=== PATIENT | male | born 1990 | race Caucasian/White ===

== ENCOUNTER 2017-05-25 18:52 | Emergency (ER) | payer MEDICAID, OTHER ==
[2017-05-25] MEDS ORDERED: Ketorolac INJ* 30 MG/ML 1 ML VIAL IV PUSH ONE (19:27)
[2017-05-25] MEDS ORDERED: NS 0.9% 1000 ML* 1,000 ML IV ONE (19:27)
[2017-05-25 19:49] LABS: Hematocrit 46 % (42-52); Mean Corpuscular HGB Conc 35 g/dl (31-36); Mean Corpuscular Hemoglobin 31 pg (27-31); Mean Corpuscular Volume 90 fL (80-94); Mean Platelet Volume 8 um3 (7.4-10.4); Red Blood Count 5.17 10^6/ul (4.0-5.4); Red Cell Distribution Width 14 % (10.5-15); White Blood Count 9.6 10^3/ul (3.5-10.8)
[2017-05-25 20:03] LABS: BUN/Creatinine Ratio 12.2 (8-20); Calcium 9.4 mg/dL (8.6-10.3); EGFR African American 143.9 (>60); EGFR Non-African American 111.9 (>60); Potassium 3.8 mmol/L (3.5-5.0)
--- NOTE | 2017-05-25 20:09 | RAD ---
INDICATION: Fall. Possible neck injury. COMPARISON: None TECHNIQUE: Noncontrast axial source images was performed from the skull base to the thoracic inlet. Coronal and and sagittal reformatted images were generated. FINDINGS: Vertebrae: There is no fracture or acute focal bony lesion. Alignment: The craniocervical junction appears normal. The cervical vertebrae are normally aligned. Central Canal: There are no significant CT abnormalities of the central canal or foramina. MR imaging is a more sensitive method to evaluate the canal and foramina. Intervertebral disc spaces: The disc spaces are maintained. Brain: The visualized brain appears unremarkable. Soft tissues: The visualized soft tissue elements of the neck are unremarkable. The prevertebral soft tissues appear normal. The lung apices are clear. IMPRESSION: NEGATIVE EXAMINATION.
--- NOTE | 2017-05-25 20:09 | RAD ---
INDICATION: Intracranial injury. COMPARISON: None TECHNIQUE: Noncontrast axial source images were acquired from the skull base to the vertex. FINDINGS: Ventricles/sulci: The ventricles and cisterns are normal in size and configuration for age. Brain parenchyma: There is no focal parenchymal finding, evidence of intracranial mass, or intracranial mass effect. Intracranial hemorrhage:None. Extra-axial spaces: There are no abnormal extra axial fluid collections or evidence of extra-axial mass. Calvarium: There is no calvarial fracture or other calvarial abnormality. Scalp: There is no evidence of scalp or extracalvarial soft tissue abnormality. Paranasal sinuses/mastoid: The paranasal sinuses and mastoid air cells are clear. Other: None. IMPRESSION: NEGATIVE EXAMINATION
--- NOTE | 2017-05-25 20:30 | RAD ---
INDICATION: Pelvic injury COMPARISON: None TECHNIQUE: A single AP view of the pelvis is submitted. FINDINGS: There is no acute fracture. The SI joints and symphysis are intact. The hips articulate normally. The soft tissues are normal. IMPRESSION: NO ACUTE PLAIN RADIOGRAPHIC ABNORMALITIES.
--- NOTE | 2017-05-25 20:31 | RAD ---
INDICATION: Medial right knee pain COMPARISON: None TECHNIQUE: AP, lateral, tunnel, and sunrise views were obtained. FINDINGS: The bony structures, joint spaces, and soft tissues are normal for age. IMPRESSION: NEGATIVE EXAMINATION.
[2017-05-25] MEDS ORDERED: Cyclobenzaprine TAB* 10 MG PO ONE (21:10)
[2017-05-25] MEDS ORDERED: Cyclobenzaprine TAB* 10 MG ONE (21:13)
[2017-05-25 21:24] VITALS: BP 128/67
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
== END 2017-05-25 21:29 | disposition home or self-care (01) ==
LOC: ED 18:52
DX: S09.90XA Unspecified injury of head, initial encounter (principal); S13.9XXA Sprain of joints and ligaments of unspecified parts of neck, initial encounter; S83.91XA Sprain of unspecified site of right knee, initial encounter; S70.02XA Contusion of left hip, initial encounter; F17.200 Nicotine dependence, unspecified, uncomplicated; J45.909 Unspecified asthma, uncomplicated; V17.4XXA Pedal cycle driver injured in collision with fixed or stationary object in traffic accident, initial encounter; Y93.55 Activity, bike riding; Y92.9 Unspecified place or not applicable; F31.9 Bipolar disorder, unspecified
CPT/HCPCS: 36415; 70450; 72125; 72170; 80048; 85025; 96360; 96374; 99283; A9270-GY; J1885

== ENCOUNTER 2017-09-12 18:29 | Emergency (ER) | payer OTHER ==
--- NOTE | 2017-09-12 20:32 | RAD ---
HISTORY: Left hand and wrist injury and pain COMPARISONS: None VIEWS: 7, Frontal, lateral, and oblique views of the left hand and wrist FINDINGS: BONE DENSITY: There is advanced juxta articular osteopenia of the wrist and hand BONES: There is no displaced fracture. JOINTS: There is no arthropathy. ALIGNMENT: There is no dislocation. SOFT TISSUES: Unremarkable. OTHER FINDINGS: None. 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 NO ACUTE OSSEOUS INJURY. THE DEGREE OF OSTEOPENIA MAY MAKE A NONDISPLACED FRACTURE RADIOGRAPHICALLY OCCULT. IF SYMPTOMS PERSIST, RECOMMEND REPEAT IMAGING.
[2017-09-12] MEDS ORDERED: Naproxen TAB* 375 MG PO ONE (21:28)
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
[2017-09-12 21:48] VITALS: BP 112/74
== END 2017-09-12 21:47 | disposition home or self-care (01) ==
LOC: ED 18:29
DX: S63.92XA Sprain of unspecified part of left wrist and hand, initial encounter (principal); S60.222A Contusion of left hand, initial encounter; S00.11XA Contusion of right eyelid and periocular area, initial encounter; Y04.0XXA Assault by unarmed brawl or fight, initial encounter; Y93.9 Activity, unspecified; Y92.9 Unspecified place or not applicable; J45.909 Unspecified asthma, uncomplicated; G80.9 Cerebral palsy, unspecified; F31.9 Bipolar disorder, unspecified; F17.200 Nicotine dependence, unspecified, uncomplicated
CPT/HCPCS: 99282; A9270-GY

== ENCOUNTER 2017-11-21 20:09 | Emergency (ER) | payer OTHER ==
[2017-11-21 20:43] VITALS: BP 137/76
[2017-11-21] MEDS ORDERED: Albuterol HFA INHALER* 8 gm MDI INH ONE (22:20)
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
--- NOTE | 2017-11-22 07:31 | RAD ---
INDICATION: Trauma left elbow hyperextension. TECHNIQUE: 4 views of the left elbow were obtained. FINDINGS: The patient is status post operative reduction internal fixation of a fracture of the distal humerus. There are multiple surgical plates and screws present. The surgical hardware appears intact. The fracture appears healed. No joint effusion or acute fracture is seen. There is mild to moderate osteoarthritic change present. IMPRESSION: LIMITED STUDY, POSTSURGICAL CHANGES, NO ACUTE FRACTURE IS SEEN.
== END 2017-11-21 23:22 | disposition home or self-care (01) ==
LOC: ED 20:09
DX: S59.902A Unspecified injury of left elbow, initial encounter (principal); S40.021A Contusion of right upper arm, initial encounter; Y04.8XXA Assault by other bodily force, initial encounter; Y93.9 Activity, unspecified; Y92.9 Unspecified place or not applicable; J45.909 Unspecified asthma, uncomplicated; F31.9 Bipolar disorder, unspecified; F17.200 Nicotine dependence, unspecified, uncomplicated
CPT/HCPCS: 71046; 99282; A9270-GY

== ENCOUNTER 2018-01-15 15:51 | Inpatient (IN) | payer SELFPAY ==
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
[2018-01-15] MEDS ORDERED: diPHENhydraMINE PO* 50 MG ONE (16:33)
[2018-01-15] MEDS ORDERED: Haloperidol INJ IV/IM* 5 MG/ML AMP ONE ×2 (16:33→22:15)
[2018-01-15] MEDS ORDERED: LORazepam INJ* 2 MG/ML 1 ML VIAL ONE ×2 (16:34→22:15)
[2018-01-15 16:40] LABS: ABS Basophils 0 10^3/ul (0-0.2); ABS Eosinophils 0 10^3/ul (0-0.6); ABS Lymphocytes 1.3 10^3/ul (1.0-4.8); ABS Monocytes 0.4 10^3/ul (0-0.8); ABS Neutrophils 2.9 10^3/ul (1.5-7.7); ABS Nucleated RBC 0 10^3/ul; Hematocrit 42 % (42-52); Hemoglobin 14.2 g/dl (14.0-18.0); Lymphocyte % 27.9 % (25-47); Mean Corpuscular HGB Conc 34 g/dl (31-36); Mean Corpuscular Hemoglobin 31 pg (27-31); Mean Corpuscular Volume 92 fL (80-94); Mean Platelet Volume 7.4 um3 (7.4-10.4); Nucleated Red Blood Cells % 0.1; Platelet Count 192 10^3/ul (150-450); Red Blood Count 4.54 10^6/ul (4.00-5.40); Red Cell Distribution Width 14 % (10.5-15); White Blood Count 4.7 10^3/ul (3.5-10.8)
[2018-01-15 17:01] LABS: EGFR Non-African American 100.5 (>60)
[2018-01-15 18:55] LABS: Urine Appearance Clear; Urine Blood Negative (Negative); Urine Color Yellow; Urine Ketones Negative (Negative); Urine Protein Negative (Negative); Urine Red Blood Cell Absent (Absent); Urine Specific Gravity 1.011 (1.010-1.030); Urine Urobilinogen Negative (Negative); Urine White Blood Cell Trace(0-5/hpf) (Absent)
[2018-01-15] MEDS ORDERED: diPHENhydraMINE IV* 50 MG/ML 1 ml VIAL (BENADRYL) ONE (22:15)
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
[2018-01-16] MEDS ORDERED: Haloperidol INJ IV/IM* 5 MG/ML AMP ONE (05:09)
[2018-01-16] MEDS ORDERED: diPHENhydraMINE IV* 50 MG/ML 1 ml VIAL (BENADRYL) ONE (05:09)
[2018-01-16] MEDS ORDERED: LORazepam INJ* 2 MG/ML 1 ML VIAL ONE (05:09)
[2018-01-16] MEDS ORDERED: Haloperidol INJ IV/IM* 5 MG/ML AMP IM ONE (13:06)
[2018-01-16] MEDS ORDERED: LORazepam INJ* 2 MG/ML 1 ML VIAL IM ONE (13:06)
[2018-01-16] MEDS ORDERED: diPHENhydraMINE IV* 50 MG/ML 1 ml VIAL (BENADRYL) IM ONE (13:06)
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
[2018-01-16] MEDS ORDERED: Acetaminophen TAB* 325 MG PO PRN (15:07)
[2018-01-16] MEDS ORDERED: Nicotine GUM* 2 MG PO PRN (15:07)
[2018-01-16] MEDS ORDERED: Mouth Piece, Nicotine* 1 EACH CARTRIDGE INH SCH (15:07)
[2018-01-16] MEDS ORDERED: Al Hydrox/Mg Hydrox/Simet LIQ* 30 ML UDC PO PRN (15:07)
[2018-01-16] MEDS ORDERED: Haloperidol TAB* 5 MG PO PRN (15:10)
[2018-01-16] MEDS ORDERED: Bacitracin OINTMENT* 0.5% 0.5 oz TUBE TOPICAL ONE (15:14)
[2018-01-16] MEDS ORDERED: Bacitracin OINTMENT* 0.5% 0.5 oz TUBE ONE (15:15)
[2018-01-16] MEDS ORDERED: Albuterol HFA INHALER* 8 gm MDI INH PRN ×2 (15:31→15:44)
[2018-01-16] MEDS ORDERED: diPHENhydraMINE PO* 50 MG PO PRN (15:44)
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
[2018-01-17] MEDS: Nicotine Inhaler* 10 MG AMP INH PRN (10:31)
[2018-01-17] MEDS: Vitamin THERAPEUTIC TAB PO SCH (10:32)
[2018-01-17] MEDS ORDERED: Haloperidol TAB* 5 MG PO PRN (12:30)
[2018-01-17] MEDS: Ibuprofen TAB* 600 MG PO PRN ×2 (12:48→21:52)
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
[2018-01-17] MEDS: Divalproex DR TAB(*) 500 MG PO SCH ×2 (13:46→21:53)
--- NOTE | 2018-01-17 14:36 | RAD ---
HISTORY: rule out complication from recent injury, left forearm neuropathy, subacute trauma COMPARISONS: Left wrist dated September 12, 2017 VIEWS: 2, Frontal and lateral views of the left forearm FINDINGS: BONE DENSITY: There is juxta articular osteopenia. BONES: There is no displaced fracture. There is remote post traumatic versus postsurgical change to the mid and distal ulna. There is status post internal fixation of the distal humerus. JOINTS: There is no arthropathy. ALIGNMENT: There is no dislocation. SOFT TISSUES: Unremarkable. OTHER FINDINGS: None. IMPRESSION: 1. JUXTA-ARTICULAR OSTEOPENIA OF THE WRIST. 2. REMOTE POSTTRAUMATIC VERSUS POSTSURGICAL CHANGE OF THE ULNA. 3. STATUS POST INTERNAL FIXATION OF THE DISTAL HUMERUS. 4. NO ACUTE OSSEOUS INJURY. IF SYMPTOMS PERSIST, RECOMMEND REPEAT IMAGING
[2018-01-17] MEDS: diPHENhydraMINE PO* 50 MG PO SCH (17:23)
[2018-01-17] MEDS ORDERED: OLANzapine TAB*ODT* 5 MG PO SCH (21:00)
[2018-01-17] MEDS ORDERED: OLANzapine TAB* 5 MG PO SCH (21:00)
[2018-01-17] MEDS: Bacitracin OINTMENT* 0.5% 0.5 oz TUBE TOPICAL SCH (21:55)
[2018-01-18] MEDS: diPHENhydraMINE PO* 50 MG PO SCH ×3 (02:38→11:24)
[2018-01-18 09:00] VITALS: BP 126/75
[2018-01-18] MEDS: Divalproex DR TAB(*) 500 MG PO SCH (09:17)
[2018-01-18] MEDS: Vitamin THERAPEUTIC TAB PO SCH (09:18)
[2018-01-18] MEDS: Bacitracin OINTMENT* 0.5% 0.5 oz TUBE TOPICAL SCH (09:19)
[2018-01-18] MEDS: Nicotine Inhaler* 10 MG AMP INH PRN (10:42)
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
== END 2018-01-18 13:05 | disposition home or self-care (01) | DRG 885 ==
LOC: ED 15:51 → BSU 01-16 16:05
PROVIDERS: ADMIT Psychiatry & Neurology Psychiatry; ATTEND Psychiatry & Neurology Psychiatry
PROC: 0CQ0XZZ Repair Upper Lip, External Approach (ICD-10-PCS; principal; 2018-01-16)
DX: F31.2 Bipolar disorder, current episode manic severe with psychotic features (principal); R45.851 Suicidal ideations; R45.850 Homicidal ideations; J45.909 Unspecified asthma, uncomplicated; G80.9 Cerebral palsy, unspecified; F17.210 Nicotine dependence, cigarettes, uncomplicated; S50.311A Abrasion of right elbow, initial encounter; S80.212A Abrasion, left knee, initial encounter; S80.211A Abrasion, right knee, initial encounter; S00.511A Abrasion of lip, initial encounter; X58.XXXA Exposure to other specified factors, initial encounter; M54.9 Dorsalgia, unspecified; M79.2 Neuralgia and neuritis, unspecified; F12.10 Cannabis abuse, uncomplicated; F19.10 Other psychoactive substance abuse, uncomplicated; Z91.19 Patient's noncompliance with other medical treatment and regimen; Y92.9 Unspecified place or not applicable
CPT/HCPCS: 36415; 80053; 80061; 80307; 80320; 80329; 81003; 81015; 83036; 84443; 85025; 87086; 99222; 99238; 99285; A9270-GY; G0480; J1200; J1630; J2060

== ENCOUNTER 2018-01-27 15:12 | Emergency (ER) | payer MEDICAID ==
[2018-01-27 15:49] VITALS: BP 119/69
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
== END 2018-01-27 15:45 | disposition home or self-care (01) ==
LOC: ED 15:12
DX: S01.511D Laceration without foreign body of lip, subsequent encounter (principal); W45.8XXD Other foreign body or object entering through skin, subsequent encounter; F17.210 Nicotine dependence, cigarettes, uncomplicated
CPT/HCPCS: 99281

== ENCOUNTER 2018-02-09 11:58 | Emergency (ER) | payer MEDICAID ==
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
[2018-02-09 12:53] LABS: ABS Basophils 0 10^3/ul (0-0.2); ABS Eosinophils 0.1 10^3/ul (0-0.6); ABS Lymphocytes 1.6 10^3/ul (1.0-4.8); ABS Monocytes 0.5 10^3/ul (0-0.8); ABS Neutrophils 4.4 10^3/ul (1.5-7.7); ABS Nucleated RBC 0 10^3/ul; Hematocrit 44 % (42-52); Lymphocyte % 24.2 % (25-47); Mean Corpuscular HGB Conc 34 g/dl (31-36); Mean Corpuscular Hemoglobin 31 pg (27-31); Mean Corpuscular Volume 91 fL (80-94); Mean Platelet Volume 7.7 um3 (7.4-10.4); Nucleated Red Blood Cells % 0; Platelet Count 223 10^3/ul (150-450); Red Blood Count 4.82 10^6/ul (4.00-5.40); Red Cell Distribution Width 14 % (10.5-15); White Blood Count 6.6 10^3/ul (3.5-10.8)
[2018-02-09 13:18] LABS: EGFR Non-African American 104.5 (>60)
[2018-02-09 14:04] LABS: Urine Appearance Clear; Urine Blood Negative (Negative); Urine Color Straw; Urine Ketones Negative (Negative); Urine Protein Negative (Negative); Urine Specific Gravity 1.008 (1.010-1.030); Urine Urobilinogen Negative (Negative)
[2018-02-09 14:46] VITALS: BP 150/85
== END 2018-02-09 14:45 | disposition home or self-care (01) ==
LOC: ED 11:58
DX: F29 Unspecified psychosis not due to a substance or known physiological condition (principal); N53.9 Unspecified male sexual dysfunction; F17.210 Nicotine dependence, cigarettes, uncomplicated
CPT/HCPCS: 36415; 80053; 80307; 80320; 80329; 81003; 84443; 85025; 99284; G0480

== ENCOUNTER 2018-05-21 08:33 | Day surgery (SDC) | payer MEDICAID, OTHER ==
[2018-05-21] MEDS ORDERED: ceFAZolin 2 GM PREMIX in ORs 2 GM/50 ML BAG IVPB ONE (10:21)
[2018-05-21] MEDS ORDERED: Morphine VIAL* 10 MG/ML 1 ML VIAL ONE (10:21)
[2018-05-21] MEDS ORDERED: Buffered Lidocaine 0.9% SYRIN* 5 ML/SYR SYRINGE INTRADERM ONE (11:40)
[2018-05-21] MEDS ORDERED: Famotidine IV* 10 MG/ML 2 ML (20 mg) ONE (12:45)
[2018-05-21] MEDS ORDERED: Midazolam* 1 MG/ML 2 ML VIAL (2 MG) ONE ×2 (12:45→14:06)
[2018-05-21] MEDS ORDERED: fentaNYL* 50 MCG/ML 2 ML VIAL (100 MCG VIAL) ONE (12:45)
[2018-05-21] MEDS ORDERED: Bupivacaine 0.25% EPI 200,000* 30 ML SDV ONE (13:35)
[2018-05-21] MEDS ORDERED: Cisatracurium* 2 MG/ML MDV 5 ML ONE (13:51)
[2018-05-21] MEDS ORDERED: Esmolol* 10 MG/ML 10 ML (100 mg) ONE (14:00)
[2018-05-21] MEDS ORDERED: Propofol* 10 MG/ML 20 ML BTL ONE (14:00)
[2018-05-21] MEDS ORDERED: diPHENhydraMINE IV* 50 MG/ML 1 ml VIAL (BENADRYL) ONE (14:08)
[2018-05-21] MEDS ORDERED: HYDROmorphone INJ1* 1 MG/ML SYRINGE ONE ×2 (14:08→15:00)
[2018-05-21] MEDS ORDERED: Labetalol IV* 5 MG/ML 20 ML VIAL ONE (14:16)
[2018-05-21] MEDS ORDERED: DiMENhydriNATE IV* 50 MG/ML VIAL IV PUSH PRN (14:43)
[2018-05-21] MEDS ORDERED: Levalbuterol 0.63MG/3ML NEB* UNIT OF USE INH PRN (14:43)
[2018-05-21] MEDS ORDERED: Ondansetron INJ* 2 MG/ML VIAL IV PRN (14:43)
[2018-05-21] MEDS ORDERED: PROCHLORPERAZINE INJ 5 MG/ML 2 ML VIAL IV PRN (14:43)
[2018-05-21] MEDS ORDERED: HYDROcodone/ACETAMIN 5-325 MG* 1 TAB PO PRN ×2 (14:43)
[2018-05-21] MEDS ORDERED: Naloxone* 0.4 MG/ML 1 ML VIAL IV PRN (14:43)
[2018-05-21] MEDS ORDERED: Acetaminophen IV 1GM/100ML * 1,000 MG/100 ML VIAL IVPB ONE (14:43)
[2018-05-21] MEDS ORDERED: HYDROmorphone INJ1* 1 MG/ML SYRINGE IV PRN (14:43)
[2018-05-21] MEDS ORDERED: diPHENhydraMINE IV* 50 MG/ML 1 ml VIAL (BENADRYL) IV PRN (14:43)
[2018-05-21] MEDS ORDERED: Ketorolac INJ* 30 MG/ML 1 ML VIAL ONE (15:28)
[2018-05-21] MEDS ORDERED: HYDROcodone/ACETAMIN 5-325 MG* 1 TAB ONE (17:44)
[2018-05-21 17:57] VITALS: BP 131/79
--- NOTE | 2018-05-22 20:51 | OP ---
DATE OF OPERATION: 05/21/18 - [facility] DATE OF : 88 SURGEON: Dereje Alfred MD MECHANICAL TEST TECHNICIAN: Aneesh Grace MD ANESTHESIOLOGIST: Dr. Segal. ANESTHESIA: General with local. PRE-OP DIAGNOSIS: Right inguinal hernia. POST-OP DIAGNOSIS: Right direct inguinal hernia. OPERATIVE PROCEDURE: Totally extraperitoneal laparoscopic repair with mesh of a right direct inguinal hernia. ESTIMATED BLOOD LOSS: Minimal. SPECIMENS: None. WOUND CLASSIFICATION: 1. COMPLICATIONS: None. DRAINS: None. DESCRIPTION OF PROCEDURE: Written informed consent was obtained. The right groin was marked with indelible ink and preoperative antibiotics were administered. The patient was taken to the operating room, placed in the supine position. Sequential compression devices and a warming blanket were applied. General anesthesia was administered. A Magdaleno catheter was inserted. The entire abdomen and both groins were prepped and draped in the usual sterile fashion. Time-out verification was completed. Initially, a small transverse incision was made just below the umbilicus and just off the left of the midline and carried down to the anterior rectus fascia. This was divided transversely and the rectus muscle was identified at the midline and retracted laterally. The preperitoneal space was identified and using a Spacemaker balloon, this was advanced down to the pubic tubercle. Under direct vision with the camera, we inflated the balloon to develop the extraperitoneal space with about 15 squeezes of the hand pump. Once this was complete, the balloon was deflated and removed. A 12-mm blunt port was inserted and the extraperitoneal space was insufflated to 12 mmHg. The patient was placed in Trendelenburg position. Under direct vision, two 5-mm ports were placed in the lower midline below our initial incision. The pubic tubercle at the midline was identified. Giles's ligament was freed up somewhat to the left of the midline and then attention was turned to the right side. We identified the Giles's ligament on the right and moving laterally identified the epigastric vessels as I gained entry into the anterior abdominal wall and these were protected from injury throughout. More laterally, the anterior abdominal wall was dissected through the adventitial tissue just about to the iliac crest on the right. At this point, it appeared apparent that there was a direct space hernia that had been reduced with the insufflation of balloon. We identified the peritoneum laterally and worked lateral to medially reducing this back into the retroperitoneum and more posteriorly there was no evidence of an indirect inguinal hernia. I identified the vas deferens and spermatic cord contents and these were protected from injury throughout. Once the peritoneum had dissected back posteriorly, the ProGrip 10 cm x 15 cm mesh was cut down slightly in a lateral direction and the edges were rounded. It was folded and placed into the extraperitoneal space. The medial aspect covering the pubic tubercle with generous overlap extending onto the left side somewhat. This fitted nicely covering the direct and indirect spaces anteriorly and posteriorly with care to make sure that the peritoneum had been reflected back posteriorly. The mesh sat nicely without evidence of wrinkling or significant folds. Hemostasis was assured. The insufflation was reduced in a direct vision holding the mesh in place to allow the peritoneum to adhere the mesh up to the anterior abdominal wall. The anterior rectus fascia was then closed with several interrupted #1 Vicryl suture. The skin at all three incisions was approximated with subcuticular 4-0 Vicryl suture. Steri-Strips were applied. The patient tolerated the procedure well, was taken to the recovery room in stable condition. [id number]/[facility] #: [id number] [facility]ITALMary Grace
== END 2018-05-21 18:19 | disposition home or self-care (01) ==
LOC: OR 08:33
PROVIDERS: ATTEND Surgery
DX: K40.90 Unilateral inguinal hernia, without obstruction or gangrene, not specified as recurrent (principal); R00.1 Bradycardia, unspecified; J45.909 Unspecified asthma, uncomplicated; F17.210 Nicotine dependence, cigarettes, uncomplicated; F31.9 Bipolar disorder, unspecified
CPT/HCPCS: 93005; J0690; J1170; J1200; J1885; J2250; J2270; J2704; J3010

== ENCOUNTER 2018-07-02 17:29 | Inpatient (IN) | payer OTHER ==
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
[2018-07-02 18:09] LABS: ABS Basophils 0.1 10^3/ul (0-0.2); ABS Eosinophils 0.1 10^3/ul (0-0.6); ABS Lymphocytes 2.3 10^3/ul (1.0-4.8); ABS Monocytes 0.6 10^3/ul (0-0.8); ABS Neutrophils 4.1 10^3/ul (1.5-7.7); ABS Nucleated RBC 0 10^3/ul; Eosinophil % 1.7 %; Hematocrit 45 % (42-52); Hemoglobin 15.5 g/dl (14.0-18.0); Lymphocyte % 31.8 %; Mean Corpuscular HGB Conc 35 g/dl (31-36); Mean Corpuscular Hemoglobin 31 pg (27-31); Mean Corpuscular Volume 90 fL (80-94); Mean Platelet Volume 7.3 fL (7.4-10.4); Nucleated Red Blood Cells % 0.1; Platelet Count 253 10^3/ul (150-450); Red Blood Count 4.96 10^6/ul (4.00-5.40); Red Cell Distribution Width 14 % (10.5-15); White Blood Count 7.2 10^3/ul (3.5-10.8)
[2018-07-02 18:26] LABS: ALT 21 U/L (7-52); AST 20 U/L (13-39); Albumin 4.6 g/dL (3.2-5.2); Albumin/Globulin Ratio 1.9 (1-3); Alkaline Phosphatase 60 U/L (34-104); Anion Gap 6 mmol/L (2-11); BUN/Creatinine Ratio 19.4 (8-20); Blood Urea Nitrogen 19 mg/dL (6-24); CO2 Carbon Dioxide 29 mmol/L (22-32); Calcium 9.5 mg/dL (8.6-10.3); Chloride 103 mmol/L (101-111); EGFR Non-African American 90.4 (>60); Globulin 2.4 g/dL (2-4); Glucose 111 mg/dL (70-100); Potassium 4.7 mmol/L (3.5-5.0); Sodium 138 mmol/L (135-145)
[2018-07-02 18:41] LABS: Acetaminophen < 15 mcg/mL; Alcohol < 10 mg/dL (<10); Salicylate < 2.50 mg/dL (<30)
[2018-07-02 18:56] LABS: TSH (Thyroid Stimulating Horm) 2.19 mcIU/mL (0.34-5.60)
[2018-07-02] MEDS ORDERED: LORazepam INJ* 2 MG/ML 1 ML VIAL IM ONE (19:20)
[2018-07-02] MEDS ORDERED: Ziprasidone IM INJ* 20 MG/ML VIAL IM ONE (19:20)
[2018-07-02] MEDS ORDERED: Ziprasidone IM INJ* 20 MG/ML VIAL ONE (19:21)
[2018-07-02] MEDS ORDERED: LORazepam INJ* 2 MG/ML 1 ML VIAL ONE (19:22)
--- NOTE | 2018-07-02 23:06 | ED ---
Progress - Progress Note Progress Note: This patient was signed out from Dr Carrillo awaiting MHE. Re-Evaluation - Re-Evaluation First Eval Re-Evaluation Time: 06:47 Change: Worse Comment: The patient is becoming combative, this began after he was told he is being admitted, patient will be sedated. Course/Dx - Course Course Of Treatment: After a MHE by Dr. Fong the patient will be admitted for bipolar disorder. As there are no beds in the mental health unit the patient will need to be transferred. The patient will be signed out awaiting transfer. - Diagnoses Provider Diagnoses: Psychosis Discharge - Sign-Out/Discharge Documenting (check all that apply): Patient Departure - admitted , Sign-Out Patient, Receiving Sign-Out Signing out patient TO: Augustus Swift Receiving patient FROM: Seferino Abad - Discharge Plan Condition: Improved Disposition: PSYCHIATRIC FACILITY-[facility] - Billing Disposition and Condition Condition: IMPROVED Disposition: Psychiatric Facility [facility] - Attestation Statements Document Initiated by Scribe: Yes Documenting Scribe: Jay Osborne Provider For Whom Golden is Documenting (Include Credential): Christy Caraballo MD Scribe Attestation: Jay Wynn , scribed for Christy Caraballo MD on 07/03/18 at 1936. Scribe Documentation Reviewed: Yes Provider Attestation: The documentation as recorded by the Jay shane accurately reflects the service I personally performed and the decisions made by Gilda razo MD Status of Scribe Document: Viewed
[2018-07-03] MEDS ORDERED: OLANzapine TAB* 5 MG PO ONE (05:45)
[2018-07-03] MEDS ORDERED: Ziprasidone IM INJ* 20 MG/ML VIAL ONE (06:46)
[2018-07-03] MEDS ORDERED: Sterile Water for Inj* 10 ML ONE (06:47)
[2018-07-03] MEDS ORDERED: LORazepam INJ* 2 MG/ML 1 ML VIAL ONE (06:47)
[2018-07-03] MEDS ORDERED: Ziprasidone IM INJ* 20 MG/ML VIAL IM ONE (06:48)
[2018-07-03] MEDS ORDERED: LORazepam INJ* 2 MG/ML 1 ML VIAL IM ONE (06:49)
--- NOTE | 2018-07-03 07:28 | ED ---
Progress - Progress Note Progress Note: This patient was signed out from Dr. Caraballo to Dr. Swift upon shift change at 07: 00 07/03/18 pending mental health transfer since there are no beds available at [facility] [place]. Per leadership development consultant, Dr. Mina has decided the patient will be admitted to [facility] [place]. Dx: psychosis. - EKG/XRAY/CT EKG: rhythm - bradycardia, unchanged from - 05/21/18 Comments: EKG at 08:00 shows Sinus bradycardia at 56 bpm. Unchanged from Course/Dx - Course Course Of Treatment: This patient was signed out from Dr. Caraballo to Dr. Swift upon shift change at 07:00 07/03/18 pending mental health transfer since there are no beds available at [facility] [place]. Per leadership development consultant, Dr. Mina has decided the patient will be admitted to [facility] [place]. Dx: psychosis. - Diagnoses Provider Diagnoses: Psychosis - Provider Notifications Discussed Care Of Patient With: Sander Mina Time Discussed With Above Provider: 10:30 Instructed by Provider To: Other - Per leadership development consultant, Dr. Mina has decided that the patient will be admitted to [facility] [place], dx: psychosis. Discharge - Sign-Out/Discharge Documenting (check all that apply): Patient Departure - Discharge Plan Condition: Improved Disposition: PSYCHIATRIC FACILITY-[facility] [place] - Billing Disposition and Condition Condition: IMPROVED Disposition: Psychiatric Facility [facility] [place] - Attestation Statements Document Initiated by Golden: Yes Documenting Scribe: Fritz Mathews Provider For Whom Golden is Documenting (Include Credential): Augustus Swift MD Scribe Attestation: IFritz, scribed for Augustus Swift MD on 07/03/18 at 1821. Scribe Documentation Reviewed: Yes Provider Attestation: The documentation as recorded by the Fritz shane accurately reflects the service I personally performed and the decisions made by me, Augustus Swift MD Status of Scribe Document: Viewed
[2018-07-03] MEDS ORDERED: Al Hydrox/Mg Hydrox/Simet LIQ* 30 ML UDC PO PRN (11:21)
[2018-07-03] MEDS ORDERED: Acetaminophen TAB* 325 MG PO PRN (11:21)
[2018-07-03] MEDS ORDERED: Haloperidol TAB* 5 MG PO PRN (11:22)
--- NOTE | 2018-07-03 11:28 | PN ---
Progress Note - Progress Note Date of Service: 07/03/18 Note: S: Patient appears to be a mixed-race young male who arrived on a voluntary basis seeking mental health treatment, reporting that he was elected "[facility]." He has been extremely irritable and demanding, having received prns of ziprasidone and olanzapine and refusing urine for UDS. On exam he is rude and complaining about the food. Patient says he is unwelcome on [facility] property and that only Ritalin works for him. O: young, smallish mixed-race male in blue scrubs; agitated and labile; cannot contract for safety A/P: Agitation: uncertain diagnostically as patient may have been abusing drugs. Will admit to [facility] on 9.39 legal status and resume olanzapine.
[2018-07-03 15:40] VITALS: BP 132/65
[2018-07-03] MEDS ORDERED: diPHENhydraMINE IV* 50 MG/ML 1 ml VIAL (BENADRYL) IV ONE (16:19)
[2018-07-03] MEDS ORDERED: diPHENhydraMINE IV* 50 MG in NS 0.9% 50 ML* 50 ML IVPB ONE (16:19)
[2018-07-03] MEDS ORDERED: Haloperidol INJ IV/IM* 5 MG/ML AMP IM PRN (16:19)
[2018-07-03] MEDS ORDERED: LORazepam INJ* 2 MG/ML 1 ML VIAL IV PUSH ONE (16:19)
[2018-07-03] MEDS ORDERED: OLANzapine TAB* 10 MG PO SCH (21:00)
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
== END 2018-07-03 18:00 | disposition home or self-care (01) | DRG 753 ==
LOC: ED 17:29 → BSU 07-03 11:23
PROVIDERS: ADMIT Psychiatry & Neurology Psychiatry; ATTEND Psychiatry & Neurology Psychiatry
DX: F39 Unspecified mood [affective] disorder (principal); F12.10 Cannabis abuse, uncomplicated; F11.10 Opioid abuse, uncomplicated; Z81.3 Family history of other psychoactive substance abuse and dependence
CPT/HCPCS: 36415; 80053; 80320; 80329; 84443; 85025; 93005; 99238; 99284; A9270-GY; G0480; J1630; J2060; J3486

== ENCOUNTER 2018-07-06 10:26 | Emergency (ER) | payer MEDICAID, OTHER ==
[~2018-07-06 10:26] MED LIST: Nicotine PATCH 21 MG/24 HR* PATCH ONE
[2018-07-06] MEDS ORDERED: Ziprasidone IM INJ* 20 MG/ML VIAL IM ONE (10:52)
[2018-07-06] MEDS ORDERED: LORazepam INJ* 2 MG/ML 1 ML VIAL IV ONE (10:52)
[2018-07-06] MEDS ORDERED: Ziprasidone IM INJ* 20 MG/ML VIAL ONE ×3 (10:53)
[2018-07-06] MEDS ORDERED: LORazepam INJ* 2 MG/ML 1 ML VIAL ONE ×2 (10:54)
[2018-07-06] MEDS ORDERED: Sterile Water for Inj* 10 ML ONE (10:54)
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
[2018-07-06 12:29] LABS: ABS Basophils 0 10^3/ul (0-0.2); ABS Eosinophils 0.1 10^3/ul (0-0.6); ABS Lymphocytes 1.2 10^3/ul (1.0-4.8); ABS Monocytes 0.6 10^3/ul (0-0.8); ABS Neutrophils 3.6 10^3/ul (1.5-7.7); ABS Nucleated RBC 0 10^3/ul; Eosinophil % 1.1 %; Hematocrit 42 % (42-52); Hemoglobin 14.3 g/dl (14.0-18.0); Lymphocyte % 22.3 %; Mean Corpuscular HGB Conc 34 g/dl (31-36); Mean Corpuscular Hemoglobin 31 pg (27-31); Mean Corpuscular Volume 90 fL (80-94); Mean Platelet Volume 7.4 fL (7.4-10.4); Nucleated Red Blood Cells % 0; Platelet Count 231 10^3/ul (150-450); Red Blood Count 4.59 10^6/ul (4.00-5.40); Red Cell Distribution Width 14 % (10.5-15); White Blood Count 5.4 10^3/ul (3.5-10.8)
[2018-07-06 12:46] LABS: ALT 21 U/L (7-52); AST 32 U/L (13-39); Albumin/Globulin Ratio 1.5 (1-3); Alkaline Phosphatase 60 U/L (34-104); Anion Gap 7 mmol/L (2-11); BUN/Creatinine Ratio 13.5 (8-20); Blood Urea Nitrogen 13 mg/dL (6-24); CO2 Carbon Dioxide 28 mmol/L (22-32); Calcium 9.3 mg/dL (8.6-10.3); Chloride 104 mmol/L (101-111); EGFR African American 112.1 (>60); EGFR Non-African American 92.6 (>60); Globulin 2.7 g/dL (2-4); Glucose 110 mg/dL (70-100); Potassium 3.8 mmol/L (3.5-5.0); Sodium 139 mmol/L (135-145); Total Protein 6.7 g/dL (6.4-8.9)
[2018-07-06 13:45] LABS: Alcohol < 10 mg/dL (<10); Salicylate < 2.50 mg/dL (<30)
[2018-07-06 13:58] LABS: TSH (Thyroid Stimulating Horm) 1.01 mcIU/mL (0.34-5.60)
[2018-07-06 14:00] LABS: Acetaminophen < 15 mcg/mL
[2018-07-06 15:12] LABS: Urine Appearance Cloudy; Urine Bacteria Absent (Absent); Urine Bilirubin Negative (Negative); Urine Blood Negative (Negative); Urine Color Yellow; Urine Glucose Negative (Negative); Urine Ketones Trace (Negative); Urine Nitrite Negative (Negative); Urine Protein 1+(30 mg/dL) (Negative); Urine Red Blood Cell Trace(0-2/hpf) (Absent); Urine Specific Gravity 1.026 (1.010-1.030); Urine Squamous Epithelial Cell Present (Absent); Urine Urobilinogen Negative (Negative); Urine White Blood Cell Trace(0-5/hpf) (Absent)
[2018-07-06 15:30] LABS: Barbiturates Urine Screen None Detected (None Detect); Benzodiazepine Urine Screen None Detected (None Detect); Urine Cannabinoids Screen Presumptive Positive (None Detect)
[2018-07-06] MEDS ORDERED: Nicotine PATCH 7 MG/24 HR* PATCH TRANSDERM ONE ×2 (15:52)
[2018-07-06] MEDS ORDERED: Nicotine Inhaler* 10 MG AMP INH ONE ×2 (15:52)
[2018-07-06] MEDS ORDERED: Mouth Piece, Nicotine* 1 EACH CARTRIDGE ONE (16:19)
[2018-07-06] MEDS ORDERED: Haloperidol Decanoate* 50 MG/ML AMP IM ONE ×2 (19:00)
[2018-07-06] MEDS ORDERED: Nicotine PATCH 21 MG/24 HR* PATCH ONE ×2 (20:16)
[2018-07-06] MEDS: Nicotine PATCH 21 MG/24 HR* PATCH TRANSDERM ONE (20:18)
--- NOTE | 2018-07-06 23:02 | ED ---
Progress - Progress Note Progress Note: PATIENT WAS SIGNED OUT TO DR. BERONICA CARABALLO VIA DR. ALFONSO RODRIGUES, PENDING MHE AND DISPOSITION, ON SHIFT CHANGE ON 07/06/2018 AT 2200. Patient was signed out to Dr. Seferino Abad via Dr. Beronica Caraballo, pending MHE and disposition, on shift change on 07/07/2018 at 0700. - Consult/PCP Time Called: 16:45 Course/Dx - Course Course Of Treatment: Mr. Mckenna was brought to the emergency department by the police in an agitated state. His presentation was similar to that described in the report from a couple days ago. He again needed to be given medications in order to control his behavior and keep him calm. He was medically cleared and was known to Dr. Mina who had evaluated him a couple days ago. He underwent a mental health eval here in the department and Kingsley Caldwell offered him a jail injectable antipsychotic and overnight observation with the plan for discharge in the morning. The patient was agreeable to that and accepted the shot. He is now resting with the plan that Dr. Mina will evaluate him in the morning. - Diagnoses Provider Diagnoses: Acute psychosis Discharge - Sign-Out/Discharge Documenting (check all that apply): Sign-Out Patient - MARIANO Signing out patient TO: Seferino Abad Receiving patient FROM: Beronica Caraballo - Discharge Plan Condition: Stable Referrals: No Primary Care Phys,NOPCP [Primary Care Provider] - - Attestation Statements Document Initiated by Scribe: Yes Documenting Scribe: Óscar Leahy Provider For Whom Golden is Documenting (Include Credential): Beronica Caraballo MD Scribe Attestation: Óscar Wynn, scribed for Beronica Caraballo MD on 07/07/18 at 0642. Status of Scribe Document: Ready
[2018-07-07] MEDS ORDERED: Nicotine PATCH 21 MG/24 HR* PATCH ONE (02:05)
[2018-07-07] MEDS: Nicotine PATCH 21 MG/24 HR* PATCH TRANSDERM ONE (02:12)
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
--- NOTE | 2018-07-07 12:47 | ED ---
Progress - Progress Note Progress Note: Patient is received as a sign out from Dr. Caraballo to Dr. Abad at 0700 07/07/18 shift change pending disposition of this patient. [id number] - Dr. Mina discussed patient's case with Dr. Abad. He notes that patient was given Haldol Dec last night, patient stated that it was the best medication he has ever had. Patient will be discharged to home and follow up with [facility]. Dr. Abad is agreeable with this. - Consult/PCP Time Called: 16:45 Course/Dx - Course Course Of Treatment: Patient is received as a sign out from Dr. Caraballo to Dr. Abad at 0700 07/07/18 shift change pending disposition of this patient. [id number] - Dr. Mina discussed patient's case with Dr. Abad. He notes that patient was given Haldol Dec last night, patient stated that it was the best medication he has ever had. Patient will be discharged to home and follow up with [facility]. Dr. Abad is agreeable with this. - Diagnoses Provider Diagnoses: Psychotic disorder - Provider Notifications Discussed Care Of Patient With: Sander Mina Time Discussed With Above Provider: 11:58 Instructed by Provider To: Other - 1152 - Dr. Mina discussed patient's case with Dr. Abad. He notes that patient was given Haldol Dec last night, patient stated that it was the best medication he has ever had. Patient will be discharged to home and follow up with [facility]. Dr. Abad is agreeable with this. Discharge - Sign-Out/Discharge Documenting (check all that apply): Patient Departure - discharge - Discharge Plan Condition: Stable Disposition: HOME Referrals: No Primary Care Phys,NOPCP [Primary Care Provider] - - Attestation Statements Document Initiated by Scribe: Yes Documenting Scribe: MILY FRENCH Provider For Whom Scribe is Documenting (Include Credential): SHADY ABAD MD Scribe Attestation: MILY Wynn , scribed for SHADY ABAD MD on 07/07/18 at 1203. Status of Scribe Document: Ready
--- NOTE | 2018-07-07 12:49 | PN ---
Progress Note - Progress Note Date of Service: 07/07/18 Note: S: Patient with history of substance abuse, questionable TBI and antisocial personality traits brought in by police on 9.45 due to erratic, disorganized behavior per [facility]. Patient accepted a dose of haldol decanoate 75mg IM times one last night and is much more reality-focused, now calm and cooperative. 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 Continue haloperidol decanoate 75mg IM monthly
[2018-07-07 13:14] VITALS: BP 158/86
== END 2018-07-07 13:12 | disposition home or self-care (01) ==
LOC: ED 10:26
DX: F29 Unspecified psychosis not due to a substance or known physiological condition (principal); D50.9 Iron deficiency anemia, unspecified; J45.909 Unspecified asthma, uncomplicated; F32.9 Major depressive disorder, single episode, unspecified; F17.210 Nicotine dependence, cigarettes, uncomplicated
CPT/HCPCS: 36415; 80053; 80307; 80320; 80329; 81003; 81015; 84443; 85025; 87086; 96372; 96374; 99285; A9270-GY; G0480; J1631; J2060; J3486

== ENCOUNTER 2018-07-09 08:27 | Emergency (ER) | payer OTHER ==
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
[2018-07-09 09:19] LABS: ABS Basophils 0.1 10^3/ul (0-0.2); ABS Eosinophils 0.2 10^3/ul (0-0.6); ABS Lymphocytes 1.2 10^3/ul (1.0-4.8); ABS Monocytes 0.6 10^3/ul (0-0.8); ABS Nucleated RBC 0 10^3/ul; Eosinophil % 2.9 %; Hematocrit 45 % (42-52); Hemoglobin 15.2 g/dl (14.0-18.0); Lymphocyte % 20.2 %; Mean Corpuscular HGB Conc 34 g/dl (31-36); Mean Corpuscular Hemoglobin 31 pg (27-31); Mean Corpuscular Volume 92 fL (80-94); Mean Platelet Volume 7.8 fL (7.4-10.4); Nucleated Red Blood Cells % 0.1; Platelet Count 220 10^3/ul (150-450); Red Blood Count 4.95 10^6/ul (4.00-5.40); Red Cell Distribution Width 14 % (10.5-15); White Blood Count 6.1 10^3/ul (3.5-10.8)
[2018-07-09 09:38] LABS: ALT 17 U/L (7-52); AST 20 U/L (13-39); Albumin 4.3 g/dL (3.2-5.2); Alkaline Phosphatase 59 U/L (34-104); Anion Gap 6 mmol/L (2-11); BUN/Creatinine Ratio 11.6 (8-20); Blood Urea Nitrogen 10 mg/dL (6-24); CO2 Carbon Dioxide 26 mmol/L (22-32); Calcium 9.3 mg/dL (8.6-10.3); Chloride 108 mmol/L (101-111); Creatine Kinase 251 U/L (10-223); EGFR Non-African American 105.1 (>60); Globulin 2.1 g/dL (2-4); Glucose 110 mg/dL (70-100); Potassium 4.1 mmol/L (3.5-5.0); Sodium 140 mmol/L (135-145); Total Protein 6.4 g/dL (6.4-8.9)
[2018-07-09] MEDS ORDERED: NS 0.9% 1000 ML* 1,000 ML IV ONE (09:41)
[2018-07-09 09:56] LABS: Acetaminophen < 15 mcg/mL; Alcohol < 10 mg/dL (<10); Salicylate < 2.50 mg/dL (<30)
[2018-07-09] MEDS ORDERED: Benztropine TAB* 2 MG PO ONE (10:04)
[2018-07-09 10:09] LABS: TSH (Thyroid Stimulating Horm) 0.77 mcIU/mL (0.34-5.60)
[2018-07-09 11:01] LABS: Urine Appearance Clear; Urine Bacteria Absent (Absent); Urine Bilirubin Negative (Negative); Urine Blood Negative (Negative); Urine Color Yellow; Urine Glucose Negative (Negative); Urine Ketones Negative (Negative); Urine Nitrite Negative (Negative); Urine Protein Negative (Negative); Urine Red Blood Cell Absent (Absent); Urine Specific Gravity 1.011 (1.010-1.030); Urine Urobilinogen Negative (Negative); Urine White Blood Cell 1+(6-10/hpf) (Absent)
[2018-07-09 11:23] LABS: Barbiturates Urine Screen None Detected (None Detect); Benzodiazepine Urine Screen None Detected (None Detect); Urine Cannabinoids Screen Presumptive Positive (None Detect)
[2018-07-09 11:31] VITALS: BP 106/66
== END 2018-07-09 11:30 | disposition home or self-care (01) ==
LOC: ED 08:27
DX: R25.1 Tremor, unspecified (principal); F17.210 Nicotine dependence, cigarettes, uncomplicated
CPT/HCPCS: 36415; 80053; 80307; 80320; 80329; 81003; 81015; 82550; 83605; 84443; 85025; 87086; 93005; 96360; 96361; 99283; A9270-GY; G0480

== ENCOUNTER 2018-07-10 18:16 | Emergency (ER) | payer OTHER ==
[2018-07-10] MEDS ORDERED: Benztropine INJ* 1 MG/ML 2 ML AMP IM ONE (20:28)
[2018-07-10] MEDS ORDERED: Benztropine INJ* 1 MG/ML 2 ML AMP ONE (20:31)
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
[2018-07-10 20:45] VITALS: BP 119/65
== END 2018-07-10 20:43 | disposition home or self-care (01) ==
LOC: ED 18:16
DX: G24.9 Dystonia, unspecified (principal); F31.9 Bipolar disorder, unspecified; J45.909 Unspecified asthma, uncomplicated; F17.210 Nicotine dependence, cigarettes, uncomplicated
CPT/HCPCS: 96372; 99282; J0515

== ENCOUNTER 2019-06-23 12:16 | Emergency (ER) | payer MEDICAID, OTHER ==
[2019-06-23] MEDS ORDERED: LORazepam TAB(*) 1 MG PO ONE ×2 (12:38→13:57)
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
[2019-06-23 12:53] LABS: ABS Basophils 0.1 10^3/ul (0-0.2); ABS Lymphocytes 1.1 10^3/ul (1.0-4.8); ABS Monocytes 0.9 10^3/ul (0-0.8); ABS Neutrophils 4.7 10^3/ul (1.5-7.7); Eosinophil % 0.5 %; Hematocrit 44 % (42-52); Hemoglobin 15.3 g/dL (14.0-18.0); Lymphocyte % 15.7 %; Mean Corpuscular HGB Conc 35 g/dL (31-36); Mean Corpuscular Hemoglobin 31 pg (27-31); Mean Corpuscular Volume 91 fL (80-94); Mean Platelet Volume 7.5 fL (7.4-10.4); Platelet Count 264 10^3/uL (150-450); Red Blood Count 4.87 10^6 /uL (4.18-5.48); Red Cell Distribution Width 14 % (10-15); White Blood Count 6.8 10^3/uL (3.5-10.8)
[2019-06-23 13:21] LABS: ALT 17 U/L (7-52); AST 22 U/L (13-39); Albumin 4.2 g/dL (3.2-5.2); Albumin/Globulin Ratio 1.4 (1-3); Alkaline Phosphatase 77 U/L (34-104); Anion Gap 9 mmol/L (2-11); BUN/Creatinine Ratio 12.8 (8-20); Blood Urea Nitrogen 11 mg/dL (6-24); CO2 Carbon Dioxide 24 mmol/L (22-32); Calcium 9.2 mg/dL (8.6-10.3); Chloride 106 mmol/L (101-111); EGFR African American 126.3 (>60); EGFR Non-African American 104.4 (>60); Glucose 141 mg/dL (70-100); Potassium 3.6 mmol/L (3.5-5.0); Sodium 139 mmol/L (135-145); Total Protein 7.2 g/dL (6.4-8.9)
[2019-06-23 14:33] LABS: Acetaminophen < 15 mcg/mL; Alcohol < 10 mg/dL (<10); Salicylate < 2.50 mg/dL (<30)
[2019-06-23 14:42] VITALS: BP 141/73
[2019-06-23 14:48] LABS: TSH (Thyroid Stimulating Horm) 0.32 mcIU/mL (0.34-5.60)
== END 2019-06-23 14:42 | disposition home or self-care (01) ==
LOC: ED 12:16
DX: F19.94 Other psychoactive substance use, unspecified with psychoactive substance-induced mood disorder (principal); J45.909 Unspecified asthma, uncomplicated; F41.9 Anxiety disorder, unspecified; F31.9 Bipolar disorder, unspecified; F17.210 Nicotine dependence, cigarettes, uncomplicated
CPT/HCPCS: 36415; 80053; 80320; 80329; 84443; 85025; 99285; A9270-GY; G0480

== ENCOUNTER 2019-06-29 04:42 | Emergency (ER) | payer MEDICAID ==
[2019-06-29] MEDS ORDERED: diPHENhydraMINE IV* 50 MG/ML 1 ml VIAL (BENADRYL) IM ONE (04:47)
[2019-06-29] MEDS ORDERED: LORazepam INJ* 2 MG/ML 1 ML VIAL IM ONE (04:47)
[2019-06-29] MEDS ORDERED: Haloperidol INJ IV/IM* 5 MG/ML AMP IM ONE (04:47)
[2019-06-29] MEDS ORDERED: LORazepam INJ* 2 MG/ML 1 ML VIAL ONE (04:50)
[2019-06-29] MEDS ORDERED: Haloperidol INJ IV/IM* 5 MG/ML AMP ONE (04:50)
[2019-06-29] MEDS ORDERED: diPHENhydraMINE IV* 50 MG/ML 1 ml VIAL (BENADRYL) ONE (04:50)
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
[2019-06-29 05:25] LABS: ABS Lymphocytes 1.1 10^3/ul (1.0-4.8); ABS Monocytes 0.6 10^3/ul (0-0.8); ABS Neutrophils 7.8 10^3/ul (1.5-7.7); Hematocrit 41 % (42-52); Hemoglobin 14.1 g/dL (14.0-18.0); Lymphocyte % 11.2 %; Mean Corpuscular HGB Conc 34 g/dL (31-36); Mean Corpuscular Hemoglobin 31 pg (27-31); Mean Corpuscular Volume 91 fL (80-94); Mean Platelet Volume 7.4 fL (7.4-10.4); Nucleated Red Blood Cells % 0.1; Platelet Count 215 10^3/uL (150-450); Red Blood Count 4.56 10^6 /uL (4.18-5.48); Red Cell Distribution Width 14 % (10-15); White Blood Count 9.6 10^3/uL (3.5-10.8)
[2019-06-29 05:46] LABS: ALT 18 U/L (7-52); AST 24 U/L (13-39); Albumin/Globulin Ratio 1.4 (1-3); Alkaline Phosphatase 74 U/L (34-104); Anion Gap 7 mmol/L (2-11); BUN/Creatinine Ratio 10.2 (8-20); Blood Urea Nitrogen 14 mg/dL (6-24); CO2 Carbon Dioxide 25 mmol/L (22-32); Calcium 9.1 mg/dL (8.6-10.3); Chloride 108 mmol/L (101-111); EGFR African American 73.8 (>60); Globulin 2.8 g/dL (2-4); Glucose 95 mg/dL (70-100); Potassium 3.8 mmol/L (3.5-5.0); Sodium 140 mmol/L (135-145); Total Protein 6.8 g/dL (6.4-8.9)
[2019-06-29 05:49] LABS: Acetaminophen < 15 mcg/mL; Alcohol < 10 mg/dL (<10); Salicylate < 2.50 mg/dL (<30)
[2019-06-29 06:02] LABS: TSH (Thyroid Stimulating Horm) 0.88 mcIU/mL (0.34-5.60)
--- NOTE | 2019-06-29 07:11 | ED ---
Progress - Progress Note Progress Note: This pt is a sign out from Dr. Mejia to Dr. Rojas at shift change on at 0700 pending a mental health evaluation. Re-Evaluation - Re-Evaluation First Eval Re-Evaluation Time: 07:06 Comment: Pt is sleeping. Second Eval Re-Evaluation Time: 12:18 Comment: Per mental health order desk caller, pt's case was reviewed by Dr. Mina, psychiatrist. Dr. Mina recommends discharging the patient home with dx adjustment disorder. Course/Dx - Course Course Of Treatment: Patient was sent from Dr. Mejia pending mental health evaluation. Patient is monitored in the ED until he was more awake from his chemical sedation. Patient was evaluated by the psychiatric team and thought he was a good candidate for discharge. - Diagnoses Provider Diagnoses: Adjustment disorder Discharge ED - Sign-Out/Discharge Documenting (check all that apply): Patient Departure - Discharge, Receiving Sign-Out Receiving patient FROM: Dominique Mejia - Discharge Plan Condition: Stable Disposition: HOME Referrals: [facility] [Outside] No Primary Care Phys,NOPCP [Primary Care Provider] - - Billing Disposition and Condition Condition: STABLE Disposition: Home - Attestation Statements Document Initiated by Scribe: Yes Documenting Scribe: Liliana Zhang Provider For Whom Golden is Documenting (Include Credential): David Rojas MD Scribe Attestation: Liliana Wynn, scribed for David Rojas MD on 06/29/19 at 1330. Scribe Documentation Reviewed: Yes Provider Attestation: The documentation as recorded by the Liliana shane accurately reflects the service I personally performed and the decisions made by me, David Rojas MD Status of Scribe Document: Viewed
[2019-06-29 11:48] VITALS: BP 96/50
== END 2019-06-29 13:12 | disposition home or self-care (01) ==
LOC: ED 04:42
DX: F43.20 Adjustment disorder, unspecified (principal); R45.5 Hostility; F17.210 Nicotine dependence, cigarettes, uncomplicated
CPT/HCPCS: 36415; 80053; 80320; 80329; 84443; 85025; 99285; G0480; J1200; J1630; J2060

== ENCOUNTER 2019-07-06 11:16 | Emergency (ER) | payer MEDICAID ==
[2019-07-06 11:36] VITALS: BP 144/85
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
== END 2019-07-06 12:02 | disposition left against medical advice (07) ==
LOC: ED 11:16
DX: J06.9 Acute upper respiratory infection, unspecified (principal); F17.210 Nicotine dependence, cigarettes, uncomplicated; J45.909 Unspecified asthma, uncomplicated; F41.9 Anxiety disorder, unspecified; F31.9 Bipolar disorder, unspecified; Z88.8 Allergy status to other drugs, medicaments and biological substances
CPT/HCPCS: 99283

== ENCOUNTER 2019-07-09 14:30 | Inpatient (IN) | payer MEDICAID ==
[2019-07-09] MEDS ORDERED: Acetaminophen TAB* 325 MG PO PRN (14:45)
[2019-07-09] MEDS ORDERED: Al Hydrox/Mg Hydrox/Simet LIQ* 30 ML UDC PO PRN (14:45)
[2019-07-09] MEDS ORDERED: LORazepam INJ* 2 MG/ML 1 ML VIAL ONE (14:46)
[2019-07-09] MEDS ORDERED: chlorproMAZINE TAB* 100 MG PO PRN (14:47)
[2019-07-09] MEDS ORDERED: LORazepam TAB(*) 1 MG PO ONE (14:48)
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
[2019-07-09] MEDS ORDERED: diPHENhydraMINE IV* 50 MG/ML 1 ml VIAL (BENADRYL) ONE (15:15)
[2019-07-09] MEDS ORDERED: Haloperidol INJ IV/IM* 5 MG/ML AMP ONE (15:15)
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
[2019-07-09] MEDS: Lurasidone(*) 80 MG TAB PO SCH ×2 (21:01→23:06)
[2019-07-10] MEDS ORDERED: Nicotine* 2MG (FRUIT FLAVOR) GUM PO PRN (13:07)
--- NOTE | 2019-07-10 13:14 | PN ---
Subjective - Subjective Date of Service: 07/10/19 Service Type: 44593 Hosp care 15 min low complexity Subjective: Jarrod presents as paranoid, dishevelled and disorganized. He is informed about the police impounding his vehicle and starts screaming at me "You did this! This is your fault!" He initially stormed out of the room but later attempts to negotiate with me, saying that if I will let him go he will return to the hospital in 24 hours for further treatment. He insists that he will lose his house and 3 dogs if kept here in the hospital. He was offered prn chlorpromazine but thought the 100mg dose was too strong so he bit it in half, swallowing approximately 50mg of it. He continues to rationalize why hurting or killing police officers is acceptable. Objective - General Observations Appearance: Disheveled Appears Stated Age: Yes Stature: WNL Posture: WNL Eye Contact: Intense Behavior/Activity: Accelerated - Interaction Observations Attitude Towards Examiner: Cooperative Stated Mood: Dysphoric Affect: Labile Speech Pattern/Tone: Pressured, Loud Volume Thought Process: Tangential Thought Content: Paranoid Thought Process: Lethality: Homicidal Ideation, Paranoid Ideation Hallucination Type: None Delusion Type: Persecution - Cognitive Function Orientation: A&O x 4 Level of Consciousness: Awake Cognition: WNL Estimated Intelligence: Normal Insight: Difficulty Acknowledging Presence of Psyciatric Problems Judgment Within Normal Limits: Yes Ability to Make Reasonable Decisions: Serverely Impaired - Medication Compliance Cooperative with Inpatient Medication Regimen: Yes - Group Participation Participates in Group Activities: No Assessment - Assessment Merits Inpatient Hospitalization: For Immediate Safety, For Stabilization Inpatient DSM-V Dx: F25.0 Clinical Impression: 29 y.o. single, homeless, white male with a history of schizoaffective disorder , currently a client of the ACT team, who arrives on a 9.55 involuntary legal status after making homicidal threats directed at law enforcement and acknowledging having multiple weapons in his car. Plan - Plan Treatment Plan: Name: BARTOLO WOODWARD Birthdate: 1990 [id number] We have resumed lurasidone 80mg PO q1700. Patient requires further inpatient care in a locked, secured setting. Continued Medication Management: Start Medication Medications: Current Medications Acetaminophen (Tylenol Tab*) 650 mg PO Q4H PRN PRN Reason: for pain; or Temp >101 F Al Hydrox/Mg Hydrox/Simethicone (Maalox Plus*) 30 ml PO Q4H PRN PRN Reason: INDIGESTION Chlorpromazine HCl (Thorazine Tab*) 100 mg PO Q6H PRN PRN Reason: AGITATION Last Admin: 07/10/19 10:00 Dose: 50 mg Lurasidone HCl (Latuda) 80 mg PO 1700 JEN Last Admin: 07/09/19 23:06 Dose: 80 mg - Discharge Plan Discharge Plan: Inpatient Hospitalization
[2019-07-10] MEDS: diPHENhydraMINE PO* 50 MG PO PRN (14:33)
[2019-07-10] MEDS: chlorproMAZINE TAB* 50 MG PO PRN (14:33)
[2019-07-10] MEDS ORDERED: Albuterol HFA INHALER* 8 gm MDI INH PRN (17:29)
[2019-07-10] MEDS: Lurasidone(*) 80 MG TAB PO SCH (17:38)
[2019-07-11] MEDS: chlorproMAZINE TAB* 50 MG PO PRN (08:26)
[2019-07-11] MEDS: diPHENhydraMINE PO* 50 MG PO PRN (10:44)
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
[2019-07-11] MEDS: Lurasidone(*) 80 MG TAB PO SCH (17:44)
[2019-07-11] MEDS: ValACYclovir (*) 1 GM TAB PO SCH (21:47)
[2019-07-12] MEDS: chlorproMAZINE TAB* 50 MG PO PRN ×2 (03:22→16:12)
[2019-07-12] MEDS: ValACYclovir (*) 1 GM TAB PO SCH ×2 (07:48→23:07)
[2019-07-12] MEDS: diPHENhydraMINE PO* 50 MG PO PRN (07:50)
[2019-07-12] MEDS: Bacitracin OINTMENT* 0.5% 0.5 oz TUBE TOPICAL PRN ×2 (09:32→23:09)
--- NOTE | 2019-07-12 11:26 | PN ---
BSU: Group Therapy Note - Service Type Service Type: 75593 Group Psychotherapy - Cognitive Behavioral Group Therapy ( CBT):Patient presented in CBT programming as disorganized and disruptive in discussion and needed repeated redirection to attend to presented materials.
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
[2019-07-12] MEDS ORDERED: chlorproMAZINE TAB* 100 MG ONE (16:24)
[2019-07-12] MEDS ORDERED: chlorproMAZINE TAB* 100 MG PO ONE (16:30)
[2019-07-12] MEDS: Lurasidone(*) 80 MG TAB PO SCH (17:54)
[2019-07-13] MEDS: ValACYclovir (*) 1 GM TAB PO SCH ×2 (09:24→21:56)
[2019-07-13] MEDS: Bacitracin OINTMENT* 0.5% 0.5 oz TUBE TOPICAL PRN (17:37)
[2019-07-13] MEDS: Lurasidone(*) 80 MG TAB PO SCH (17:37)
[2019-07-13 21:53] LABS: Herpes Source GENITAL LESION SWAB
[2019-07-14] MEDS: diPHENhydraMINE PO* 50 MG PO PRN (01:50)
[2019-07-14] MEDS: Vitamin THERAPEUTIC TAB PO SCH (09:51)
[2019-07-14] MEDS: ValACYclovir (*) 1 GM TAB PO SCH ×2 (09:51→20:39)
[2019-07-14] MEDS: Bacitracin OINTMENT* 0.5% 0.5 oz TUBE TOPICAL PRN (09:54)
[2019-07-14] MEDS ORDERED: Zolpidem TAB* 5 MG PO PRN (16:27)
[2019-07-14] MEDS: Lurasidone(*) 40 MG TAB PO SCH (17:42)
--- NOTE | 2019-07-14 19:56 | PN ---
Subjective - Subjective Date of Service: 07/14/19 Service Type: 03248 Hosp care 25 min moderate complexity Subjective: Jarrod has been around the nurses station wanting to speak with the health science writer. Reports that he doesn't want to take any D2 receptor mike, rather wants Lorazepam. However later agreed to take lower doses of Latuda and Shively. Difficult to assess but was redirectable. Objective - General Observations Appearance: Disheveled, Unkempt Stature: Thin Posture: WNL Eye Contact: Intense Behavior/Activity: Accelerated, Stereotyped - Interaction Observations Attitude Towards Examiner: Defensive, Demanding, Dismissive Stated Mood: Dysphoric Affect: Blunted Speech Pattern/Tone: Excessive, Pressured Thought Process: Disorganized Thought Content: Preoccupation/Ruminations Thought Process: Lethality: Paranoid Ideation Hallucination Type: Denies Delusion Type: Persecution - Cognitive Function Orientation: Person, Place, Situation Level of Consciousness: Awake, Alert Cognition: Impaired Cognition Estimated Intelligence: Normal Insight: Difficulty Acknowledging Presence of Psyciatric Problems Judgment Within Normal Limits: No Ability to Make Reasonable Decisions: Serverely Impaired - Medication Compliance Cooperative with Inpatient Medication Regimen: No - Group Participation Participates in Group Activities: No Assessment - Assessment Merits Inpatient Hospitalization: For Stabilization, To Initiate Treatment, For Discharge Planning Inpatient DSM-V Dx: F25.0 Clinical Impression: 29 y.o. single, homeless, white male with a history of schizoaffective disorder , currently a client of the ACT team, who arrives on a 9.55 involuntary legal status after making homicidal threats directed at law enforcement and acknowledging having multiple weapons in his car. Plan - Plan Treatment Plan: Name: BARTOLO WOODWARD Birthdate: 1990 [id number] We have resumed lurasidone 80mg PO q1700. Appreciate hospitalist input. Patient requires further inpatient care in a locked, secured setting. Continued Medication Management: Continue Outpt Medication Medications: Current Medications Acetaminophen (Tylenol Tab*) 650 mg PO Q4H PRN PRN Reason: for pain; or Temp >101 F Al Hydrox/Mg Hydrox/Simethicone (Maalox Plus*) 30 ml PO Q4H PRN PRN Reason: INDIGESTION Albuterol (Ventolin Hfa Inhaler*) 2 puff INH Q4H PRN PRN Reason: SOB/WHEEZING Bacitracin (Bacitracin Ointment*) 1 applic TOPICAL TID PRN PRN Reason: RASH Last Admin: 07/14/19 09:54 Dose: 1 applic Chlorpromazine HCl (Thorazine Tab*) 50 mg PO Q6H PRN PRN Reason: AGITATION Last Admin: 07/12/19 16:12 Dose: 50 mg Diphenhydramine HCl (Benadryl Po*) 50 mg PO Q6H PRN PRN Reason: AGITATION Last Admin: 07/14/19 01:50 Dose: 50 mg [place] Carbonate ([place] Carbonate Cap) 150 mg PO BEDTIME JEN Lurasidone HCl (Latuda) 40 mg PO 1700 JEN Last Admin: 07/14/19 17:42 Dose: 40 mg Multivitamins (Theragran Tab*) 1 tab PO DAILY JEN Last Admin: 07/14/19 09:51 Dose: 1 tab Nicotine Polacrilex (Nicotine Gum*) 2 mg PO Q2H PRN PRN Reason: CRAVING Valacyclovir HCl (Valtrex 1 Gm(*)) 1 gm PO BID JEN; Protocol Stop: 07/16/19 10:00 Last Admin: 07/14/19 09:51 Dose: 1 gm Zolpidem Tartrate (Ambien Tab*) 5 mg PO ONCE PRN PRN Reason: INSOMNIA - Discharge Plan Discharge Plan: Consider Longer Term Tx
[2019-07-14] MEDS ORDERED: Lithium Carbonate CAP 150 MG ** CAPSULE PO SCH (21:00)
[2019-07-15 05:29] LABS: ABS Eosinophils 0.1 10^3/ul (0-0.6); ABS Lymphocytes 1.4 10^3/ul (1.0-4.8); ABS Monocytes 0.5 10^3/ul (0-0.8); ABS Neutrophils 4.6 10^3/ul (1.5-7.7); Hematocrit 44 % (42-52); Hemoglobin 14.7 g/dL (14.0-18.0); Lymphocyte % 21.4 %; Mean Corpuscular HGB Conc 34 g/dL (31-36); Mean Corpuscular Hemoglobin 31 pg (27-31); Mean Corpuscular Volume 92 fL (80-94); Mean Platelet Volume 7.3 fL (7.4-10.4); Platelet Count 260 10^3/uL (150-450); Red Blood Count 4.76 10^6 /uL (4.18-5.48); Red Cell Distribution Width 14 % (10-15); White Blood Count 6.7 10^3/uL (3.5-10.8)
[2019-07-15 05:57] LABS: Albumin 3.9 g/dL (3.2-5.2); Albumin/Globulin Ratio 1.5 (1-3); Calcium 9.1 mg/dL (8.6-10.3); EGFR African American 121.4 (>60); EGFR Non-African American 100.4 (>60); Globulin 2.6 g/dL (2-4); Potassium 4.8 mmol/L (3.5-5.0); Total Bilirubin 0.3 mg/dL (0.2-1.0); Total Protein 6.5 g/dL (6.4-8.9)
[2019-07-15 06:20] LABS: TSH (Thyroid Stimulating Horm) 1.24 mcIU/mL (0.34-5.60)
[2019-07-15] MEDS: Vitamin THERAPEUTIC TAB PO SCH (09:54)
[2019-07-15] MEDS: ValACYclovir (*) 1 GM TAB PO SCH (09:55)
[2019-07-15] MEDS: Bacitracin OINTMENT* 0.5% 0.5 oz TUBE TOPICAL PRN ×2 (09:57→16:16)
--- NOTE | 2019-07-15 12:07 | PN ---
Subjective - Subjective Date of Service: 07/15/19 Service Type: [id number] Hosp care 15 min low complexity Subjective: Jarrod is paranoid and hyperverbal. He is making repeated homicidal threats towards a man named Krish Madden, who temporarily rented a room at Jarrod's forclosed house here in [place] prior to a falling out. Jarrod also expresses that the local [employer] gang is after him. He is hypergraphic, filling up a journal note book with various rants against law enforcement and justifications for his homicidal views. He was placed on a low dose of lithium over the weekend by Dr. Vargas and seems to be tolerating this well. Objective - General Observations Appearance: Disheveled Appears Stated Age: Yes Stature: WNL Posture: WNL Eye Contact: Intense Behavior/Activity: Accelerated - Interaction Observations Attitude Towards Examiner: Hostile Stated Mood: Irritable Affect: Labile Speech Pattern/Tone: Rambling, Excessive, Pressured Thought Process: Tangential Perception: WNL Thought Content: Paranoid Thought Process: Lethality: Homicidal Ideation, Paranoid Ideation Hallucination Type: None Delusion Type: Persecution - Cognitive Function Orientation: A&O x 4 Level of Consciousness: Awake Cognition: WNL Estimated Intelligence: Normal Insight: Difficulty Acknowledging Presence of Psyciatric Problems Judgment Within Normal Limits: No Ability to Make Reasonable Decisions: Serverely Impaired - Medication Compliance Cooperative with Inpatient Medication Regimen: Yes - Group Participation Participates in Group Activities: No Assessment - Assessment Merits Inpatient Hospitalization: For Immediate Safety, For Stabilization Inpatient DSM-V Dx: F25.0 Clinical Impression: 29 y.o. single, homeless, white male with a history of schizoaffective disorder , currently a client of the ACT team, who arrives on a 9.55 involuntary legal status after making homicidal threats directed at law enforcement and acknowledging having multiple weapons in his car. Plan - Plan Treatment Plan: Name: BARTOLO WOODWARD Birthdate: 1990 [id number] We have resumed lurasidone 40mg PO q1700 and added lithium 300mg PO qhs. Herpes titers are negative from genital swab. Will d/c Valtrex. Appreciate hospitalist input. Patient requires further inpatient care in a locked, secured setting. Continued Medication Management: Start Medication Medications: Current Medications Acetaminophen (Tylenol Tab*) 650 mg PO Q4H PRN PRN Reason: for pain; or Temp >101 F Al Hydrox/Mg Hydrox/Simethicone (Maalox Plus*) 30 ml PO Q4H PRN PRN Reason: INDIGESTION Albuterol (Ventolin Hfa Inhaler*) 2 puff INH Q4H PRN PRN Reason: SOB/WHEEZING Last Admin: 07/15/19 09:58 Dose: 2 puff Bacitracin (Bacitracin Ointment*) 1 applic TOPICAL TID PRN PRN Reason: RASH Last Admin: 07/15/19 09:57 Dose: 1 applic Chlorpromazine HCl (Thorazine Tab*) 50 mg PO Q6H PRN PRN Reason: AGITATION Last Admin: 07/12/19 16:12 Dose: 50 mg Diphenhydramine HCl (Benadryl Po*) 50 mg PO Q6H PRN PRN Reason: AGITATION Last Admin: 07/14/19 01:50 Dose: 50 mg [place] Carbonate ([place] Carbonate Cap) 300 mg PO BEDTIME JEN Lurasidone HCl (Latuda) 40 mg PO 1700 JEN Last Admin: 07/14/19 17:42 Dose: 40 mg Multivitamins (Theragran Tab*) 1 tab PO DAILY JEN Last Admin: 07/15/19 09:54 Dose: 1 tab Nicotine Polacrilex (Nicotine Gum*) 2 mg PO Q2H PRN PRN Reason: CRAVING Zolpidem Tartrate (Ambien Tab*) 5 mg PO ONCE PRN PRN Reason: INSOMNIA Last Admin: 07/14/19 23:15 Dose: 5 mg - Discharge Plan Discharge Plan: Consider Longer Term Tx Lab Results - Lab Results Lab Results: 07/11/19 07/15/19 07/15/19 17:55 05:24 05:24 WBC 6.7 RBC 4.76 Hgb 14.7 Hct 44 MCV 92 MCH 31 MCHC 34 RDW 14 Plt Count 260 MPV 7.3 L Neut % (Auto) 68.9 Lymph % (Auto) 21.4 [place] % (Auto) 7.1 Eos % (Auto) 2.0 Baso % (Auto) 0.6 Absolute Neuts (auto) 4.6 Absolute Lymphs (auto) 1.4 Absolute Monos (auto) 0.5 Absolute Eos (auto) 0.1 Absolute Basos (auto) 0.0 Absolute Nucleated RBC 0.0 Nucleated RBC % 0.0 Sodium 137 Potassium 4.8 Chloride 102 Carbon Dioxide 31 Anion Gap 4 BUN 16 Creatinine 0.89 Est GFR ( Amer) 121.4 Est GFR (Non-Af Amer) 100.4 BUN/Creatinine Ratio 18.0 Glucose 131 H Hemoglobin A1c Calcium 9.1 Total Bilirubin 0.30 AST 19 ALT 21 Alkaline Phosphatase 65 Total Protein 6.5 Albumin 3.9 Globulin 2.6 Albumin/Globulin Ratio 1.5 Triglycerides 106 Cholesterol 167 LDL Cholesterol 93 HDL Cholesterol 53.0 TSH 1.24 Herpes Simplex Source Genital lesion swab HSV I DNA PCR Negative HSV II DNA PCR Negative 07/15/19 05:24 WBC RBC Hgb Hct MCV MCH MCHC RDW Plt Count MPV Neut % (Auto) Lymph % (Auto) [place] % (Auto) Eos % (Auto) Baso % (Auto) Absolute Neuts (auto) Absolute Lymphs (auto) Absolute Monos (auto) Absolute Eos (auto) Absolute Basos (auto) Absolute Nucleated RBC Nucleated RBC % Sodium Potassium Chloride Carbon Dioxide Anion Gap BUN Creatinine Est GFR ( Amer) Est GFR (Non-Af Amer) BUN/Creatinine Ratio Glucose Hemoglobin A1c 5.7 H Calcium Total Bilirubin AST ALT Alkaline Phosphatase Total Protein Albumin Globulin Albumin/Globulin Ratio Triglycerides Cholesterol LDL Cholesterol HDL Cholesterol TSH Herpes Simplex Source HSV I DNA PCR HSV II DNA PCR
[2019-07-15] MEDS: Lurasidone(*) 40 MG TAB PO SCH (16:14)
[2019-07-15] MEDS: Lithium Carbonate TAB* 300 MG PO SCH (21:16)
[2019-07-16] MEDS: Vitamin THERAPEUTIC TAB PO SCH (08:42)
[2019-07-16] MEDS: Bacitracin OINTMENT* 0.5% 0.5 oz TUBE TOPICAL PRN (08:44)
--- NOTE | 2019-07-16 11:00 | PN ---
Subjective - Subjective Date of Service: 07/16/19 Service Type: 25706 Hosp care 15 min low complexity Subjective: Jarrod remains hyperverbal, paranoid and homicidal. He has an elaborate delusion about being targeted by a local criminal gang because of some kind of transaction that went wrong between himself and the leader of the "[employer] "I' ve got two strikes against me out there. I'm unaffiliated and I'm white. When I get out tomorrow I'm gonna stay in my house for 24 hours straight to kind of take the temperature on the street. When things cool off I might go outside and start looking for my dogs." He is taking the lurasidone and lithium as directed. Objective - General Observations Appearance: Disheveled Appears Stated Age: Yes Stature: WNL Posture: WNL Eye Contact: Intense Behavior/Activity: Accelerated - Interaction Observations Attitude Towards Examiner: Cooperative Stated Mood: Irritable Affect: Labile Speech Pattern/Tone: Rambling, Excessive, Pressured Thought Process: Tangential Thought Content: Paranoid Thought Process: Lethality: Homicidal Ideation, Paranoid Ideation Hallucination Type: None Delusion Type: Persecution - Cognitive Function Orientation: A&O x 4 Level of Consciousness: Awake Cognition: WNL Estimated Intelligence: Normal Insight: Difficulty Acknowledging Presence of Psyciatric Problems Judgment Within Normal Limits: No Ability to Make Reasonable Decisions: Serverely Impaired - Medication Compliance Cooperative with Inpatient Medication Regimen: Yes - Group Participation Participates in Group Activities: Yes Assessment - Assessment Merits Inpatient Hospitalization: For Immediate Safety, For Stabilization Inpatient DSM-V Dx: F25.0 Clinical Impression: 29 y.o. single, homeless, white male with a history of schizoaffective disorder , currently a client of the ACT team, who arrives on a 9.55 involuntary legal status after making homicidal threats directed at law enforcement and acknowledging having multiple weapons in his car. Plan - Plan Treatment Plan: Name: BARTOLO WOODWARD Birthdate: 1990 [id number] We have resumed lurasidone 40mg PO q1700 and added lithium 300mg PO qhs. Herpes titers are negative from genital swab. Will d/c Valtrex. Appreciate hospitalist input. Patient requires further inpatient care in a locked, secured setting. Will have court tomorrow (07/17) at 09:30 for retention and T.O.O. Continued Medication Management: Start Medication Medications: Current Medications Acetaminophen (Tylenol Tab*) 650 mg PO Q4H PRN PRN Reason: for pain; or Temp >101 F Al Hydrox/Mg Hydrox/Simethicone (Maalox Plus*) 30 ml PO Q4H PRN PRN Reason: INDIGESTION Albuterol (Ventolin Hfa Inhaler*) 2 puff INH Q4H PRN PRN Reason: SOB/WHEEZING Last Admin: 07/15/19 09:58 Dose: 2 puff Bacitracin (Bacitracin Ointment*) 1 applic TOPICAL TID PRN PRN Reason: RASH Last Admin: 07/16/19 08:44 Dose: 1 applic Chlorpromazine HCl (Thorazine Tab*) 50 mg PO Q6H PRN PRN Reason: AGITATION Last Admin: 07/12/19 16:12 Dose: 50 mg Diphenhydramine HCl (Benadryl Po*) 50 mg PO Q6H PRN PRN Reason: AGITATION Last Admin: 07/14/19 01:50 Dose: 50 mg [place] Carbonate ([place] Carbonate Tab*) 300 mg PO BEDTIME JEN Last Admin: 07/15/19 21:16 Dose: 300 mg Lurasidone HCl (Latuda) 40 mg PO 1700 JEN Last Admin: 07/15/19 16:14 Dose: 40 mg Multivitamins (Theragran Tab*) 1 tab PO DAILY JEN Last Admin: 07/16/19 08:42 Dose: 1 tab Nicotine Polacrilex (Nicotine Gum*) 2 mg PO Q2H PRN PRN Reason: CRAVING Zolpidem Tartrate (Ambien Tab*) 5 mg PO ONCE PRN PRN Reason: INSOMNIA Last Admin: 07/14/19 23:15 Dose: 5 mg - Discharge Plan Discharge Plan: Consider Longer Term Tx
[2019-07-16] MEDS: diPHENhydraMINE PO* 50 MG PO PRN (13:12)
[2019-07-16] MEDS: Lurasidone(*) 40 MG TAB PO SCH (17:46)
[2019-07-16] MEDS: Lithium Carbonate TAB* 300 MG PO SCH (20:33)
[2019-07-17] MEDS: Bacitracin OINTMENT* 0.5% 0.5 oz TUBE TOPICAL PRN (05:36)
[2019-07-17] MEDS: Vitamin THERAPEUTIC TAB PO SCH (08:50)
[2019-07-17] MEDS ORDERED: Diazepam TAB(*) 5 MG PO ONE (10:40)
[2019-07-17] MEDS ORDERED: Diazepam TAB(*) 5 MG ONE (10:53)
[2019-07-17] MEDS: chlorproMAZINE TAB* 50 MG PO PRN (11:03)
--- NOTE | 2019-07-17 11:24 | PN ---
BSU: Group Therapy Note - Service Type Service Type: 85070 Group Psychotherapy - Cognitive Behavioral Group Note: Zafar entered group after he had lost a court hearing regarding retention and treament. He was profane while making qualified homocidal statements in the context of "legally" being able to kill police officers. He displays impaired insight and judgement, and was insulting and demeaning towards his research study assistant.
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
[2019-07-17] MEDS: Lurasidone(*) 40 MG TAB PO SCH (17:32)
[2019-07-17] MEDS: Lithium Carbonate TAB* 300 MG PO SCH (21:36)
[2019-07-18] MEDS: Vitamin THERAPEUTIC TAB PO SCH (09:16)
--- NOTE | 2019-07-18 11:26 | PN ---
BSU: Group Therapy Note - Service Type Service Type: [id number] Group Psychotherapy - Cognitive Behavioral Group Note: Jarrod attended CBT programming this morning. He was insistent in continuing discussion with a repeating theme of justified violence. Jarrod persisted in this diatribe over objection, offering examples that began with attempts to discuss genocide, and moving towards examples that include stabbing, drowning and assualts. He has impaired insight presently regarding content of his conversation, impressing as having co-morbidities that include narcissistic and antisocial personality disorder, as well as hypomania, characterized by hyperverbal speech and violent ideation.
[2019-07-18] MEDS: Lurasidone(*) 40 MG TAB PO SCH (17:56)
[2019-07-18] MEDS: Lithium Carbonate TAB* 300 MG PO SCH (21:01)
[2019-07-19] MEDS: Vitamin THERAPEUTIC TAB PO SCH (08:33)
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
[2019-07-19] MEDS: Lurasidone(*) 40 MG TAB PO SCH (17:25)
[2019-07-19] MEDS: Lithium Carbonate ER* 450 MG TAB.ER PO SCH (20:28)
[2019-07-20] MEDS: Vitamin THERAPEUTIC TAB PO SCH (09:00)
[2019-07-20] MEDS: Lithium Carbonate ER* 450 MG TAB.ER PO SCH ×2 (09:00→20:18)
[2019-07-20] MEDS: Lurasidone(*) 40 MG TAB PO SCH (18:27)
[2019-07-21] MEDS: Lithium Carbonate ER* 450 MG TAB.ER PO SCH ×2 (08:57→21:12)
[2019-07-21] MEDS: Vitamin THERAPEUTIC TAB PO SCH (08:57)
[2019-07-21] MEDS: Lurasidone(*) 40 MG TAB PO SCH (17:56)
[2019-07-22] MEDS: Vitamin THERAPEUTIC TAB PO SCH (08:40)
[2019-07-22] MEDS: Lithium Carbonate ER* 450 MG TAB.ER PO SCH ×2 (09:27→19:52)
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
[2019-07-22] MEDS ORDERED: Zolpidem TAB* 5 MG PO PRN (15:26)
[2019-07-22] MEDS: Lurasidone(*) 40 MG TAB PO SCH (17:32)
[2019-07-23] MEDS: Vitamin THERAPEUTIC TAB PO SCH (08:58)
[2019-07-23] MEDS: Lithium Carbonate ER* 450 MG TAB.ER PO SCH ×3 (08:58→22:03)
[2019-07-23] MEDS: Lurasidone(*) 40 MG TAB PO SCH (17:33)
[2019-07-24] MEDS: Lithium Carbonate ER* 450 MG TAB.ER PO SCH ×3 (08:43→22:02)
[2019-07-24] MEDS: Vitamin THERAPEUTIC TAB PO SCH (08:43)
[2019-07-24] MEDS: chlorproMAZINE TAB* 50 MG PO PRN (10:05)
--- NOTE | 2019-07-24 11:24 | PN ---
Subjective - Subjective Date of Service: 07/24/19 Service Type: 73527 Hosp care 15 min low complexity Subjective: I approached Jarrod today in front of the nurse's station to check on him this morning. He responded by asking "If I keep taking these medicines, and cancel court, and keep doing everything you tell me to do, and you check the levels and they're where they're supposed to be...will you let me out of here?" In response I was forthcoming to Jarrod, stating my continued intention to refer him to rehabilitative inpatient care in the [facility] setting for his safety and for the safety of others. He immediately protested and elevated his voice, referring to another peer on the unit who he feels is doing better because of his own interventions with that person. "You can all see how much better he's doing. Has he freaked out once in the last three days since I've been talking to him?" Jarrod is redirected that we are not here to discuss the care of other patients and he is reminded that he continues to make homicidal, delusional statements. He reacts explosively screaming at me that he wants to punch this observer in the face. "I will seriously jump over this desk and punch you in the face!" The patient requires stat chlorpromazine to calm down but then proceeds to berate multiple other members of the treatment team. Objective - General Observations Appearance: Disheveled Appears Stated Age: Yes Stature: Thin Posture: Tense Eye Contact: Intense Behavior/Activity: Impulsive, Agitated - Interaction Observations Attitude Towards Examiner: Hostile Stated Mood: Angry Affect: Labile Speech Pattern/Tone: Excessive, Pressured Thought Process: Tangential Thought Content: Paranoid, Grandiose Thought Process: Lethality: Homicidal Ideation Hallucination Type: None Delusion Type: Persecution, Grandeur - Cognitive Function Orientation: A&O x 4 Level of Consciousness: Awake, Alert Cognition: WNL Estimated Intelligence: Normal Insight: Mostly Blames Others for Problems Judgment Within Normal Limits: No Ability to Make Reasonable Decisions: Serverely Impaired - Medication Compliance Cooperative with Inpatient Medication Regimen: Yes - Group Participation Participates in Group Activities: Yes Assessment - Assessment Merits Inpatient Hospitalization: For Immediate Safety, For Stabilization Inpatient DSM-V Dx: F25.0 Clinical Impression: 29 y.o. single, homeless, white male with a history of schizoaffective disorder , currently a client of the ACT team, who arrives on a 9.55 involuntary legal status after making homicidal threats directed at law enforcement and acknowledging having multiple weapons in his car. Plan - Plan Treatment Plan: Name: BARTOLO WOODWARD Birthdate: 1990 [id number] We have resumed lurasidone 40mg PO q1700 and added lithium ER, now at 450mg PO TID. We'll recheck the level on Monday (07/26). Patient warrants further inpatient care in a locked, secured setting and will require State Hospitalization. Continued Medication Management: Start Medication Medications: Current Medications Acetaminophen (Tylenol Tab*) 650 mg PO Q4H PRN PRN Reason: for pain; or Temp >101 F Al Hydrox/Mg Hydrox/Simethicone (Maalox Plus*) 30 ml PO Q4H PRN PRN Reason: INDIGESTION Albuterol (Ventolin Hfa Inhaler*) 2 puff INH Q4H PRN PRN Reason: SOB/WHEEZING Last Admin: 07/15/19 09:58 Dose: 2 puff Bacitracin (Bacitracin Ointment*) 1 applic TOPICAL TID PRN PRN Reason: RASH Last Admin: 07/17/19 05:36 Dose: 1 applic Chlorpromazine HCl (Thorazine Tab*) 50 mg PO Q6H PRN PRN Reason: AGITATION Last Admin: 07/24/19 10:05 Dose: 50 mg Diphenhydramine HCl (Benadryl Po*) 50 mg PO Q6H PRN PRN Reason: AGITATION Last Admin: 07/16/19 13:12 Dose: 50 mg [place] Carbonate ([place] Carbonate Er Tab*) 450 mg PO TID [facility] Last Admin: 07/24/19 08:43 Dose: 450 mg Lurasidone HCl (Latuda) 40 mg PO 1700 [facility] Last Admin: 07/23/19 17:33 Dose: 40 mg Multivitamins (Theragran Tab*) 1 tab PO DAILY [facility] Last Admin: 07/24/19 08:43 Dose: 1 tab Nicotine Polacrilex (Nicotine Gum*) 2 mg PO Q2H PRN PRN Reason: CRAVING Zolpidem Tartrate (Ambien Tab*) 5 mg PO ONCE PRN PRN Reason: INSOMNIA - Discharge Plan Discharge Plan: Consider Longer Term Tx
[2019-07-24] MEDS: Lurasidone(*) 40 MG TAB PO SCH (17:48)
[2019-07-25] MEDS: Lithium Carbonate ER* 450 MG TAB.ER PO SCH ×3 (08:37→20:22)
[2019-07-25] MEDS: Vitamin THERAPEUTIC TAB PO SCH (08:37)
[2019-07-25] MEDS: Lurasidone(*) 40 MG TAB PO SCH (20:22)
[2019-07-26] MEDS: Lithium Carbonate ER* 450 MG TAB.ER PO SCH ×3 (09:22→20:09)
[2019-07-26] MEDS: Vitamin THERAPEUTIC TAB PO SCH (09:22)
--- NOTE | 2019-07-26 12:37 | PN ---
Subjective - Subjective Date of Service: 07/26/19 Service Type: [id number] Hosp care 15 min low complexity Subjective: Jarrod is seen in his room where is lying down in bed, which is surrounded by his belongings strewn everywhere, and appearing dishevelled and irritable. He is hyperverbal, grandiose and paranoid, telling for example that he has cured several peers of their issues with mental illness. He is confronted about further violent comments that he has made on the unit, such as last night when his brother visited. The two got into a verbal argument and Jarrod is alleged to have told his sibling "You don't do nothing for me- I'd kill you before talking to you ever again." Jarrod continues to demand discharge and to try to bargain with me to allow him to leave." Put me in a room with all the doctors and staff and tell them why you think I'm crazy. I'll tell them why I'm not crazy and I'll go with whatever they decide." He is tolerating his medications well. Objective - General Observations Appearance: Disheveled, Unkempt Appears Stated Age: Yes Stature: Thin Posture: WNL Eye Contact: Intense Behavior/Activity: Accelerated - Interaction Observations Attitude Towards Examiner: Hostile Stated Mood: Irritable Affect: Labile Speech Pattern/Tone: Excessive, Pressured Thought Process: Tangential Thought Content: Paranoid, Grandiose Thought Process: Lethality: Homicidal Ideation Hallucination Type: None Delusion Type: Persecution, Grandeur - Cognitive Function Orientation: A&O x 4 Level of Consciousness: Awake Cognition: WNL Estimated Intelligence: Normal Insight: Mostly Blames Others for Problems Judgment Within Normal Limits: No Ability to Make Reasonable Decisions: Serverely Impaired - Medication Compliance Cooperative with Inpatient Medication Regimen: Yes - Group Participation Participates in Group Activities: Yes Assessment - Assessment Merits Inpatient Hospitalization: For Immediate Safety, For Stabilization Inpatient DSM-V Dx: F25.0 Clinical Impression: 29 y.o. single, homeless, white male with a history of schizoaffective disorder , currently a client of the ACT team, who arrives on a 9.55 involuntary legal status after making homicidal threats directed at law enforcement and acknowledging having multiple weapons in his car. Plan - Plan Treatment Plan: Name: BARTOLO WOODWARD Birthdate: 1990 [id number] We have resumed lurasidone 40mg PO q1700 and added lithium ER, now at 450mg PO TID. We'll recheck the level today (07/26). Patient warrants further inpatient care in a locked, secured setting and will require State Hospitalization. Continued Medication Management: Start Medication Medications: Current Medications Acetaminophen (Tylenol Tab*) 650 mg PO Q4H PRN PRN Reason: for pain; or Temp >101 F Al Hydrox/Mg Hydrox/Simethicone (Maalox Plus*) 30 ml PO Q4H PRN PRN Reason: INDIGESTION Albuterol (Ventolin Hfa Inhaler*) 2 puff INH Q4H PRN PRN Reason: SOB/WHEEZING Last Admin: 07/15/19 09:58 Dose: 2 puff Bacitracin (Bacitracin Ointment*) 1 applic TOPICAL TID PRN PRN Reason: RASH Last Admin: 07/17/19 05:36 Dose: 1 applic Chlorpromazine HCl (Thorazine Tab*) 50 mg PO Q6H PRN PRN Reason: AGITATION Last Admin: 07/24/19 10:05 Dose: 50 mg Diphenhydramine HCl (Benadryl Po*) 50 mg PO Q6H PRN PRN Reason: AGITATION Last Admin: 07/16/19 13:12 Dose: 50 mg [place] Carbonate ([place] Carbonate Er Tab*) 450 mg PO TID [facility] Last Admin: 07/26/19 09:22 Dose: 450 mg Lurasidone HCl (Latuda) 40 mg PO 1700 [facility] Last Admin: 07/25/19 20:22 Dose: 40 mg Multivitamins (Theragran Tab*) 1 tab PO DAILY [facility] Last Admin: 07/26/19 09:22 Dose: 1 tab Nicotine Polacrilex (Nicotine Gum*) 2 mg PO Q2H PRN PRN Reason: CRAVING Zolpidem Tartrate (Ambien Tab*) 5 mg PO ONCE PRN PRN Reason: INSOMNIA - Discharge Plan Discharge Plan: Consider Longer Term Tx
[2019-07-26] MEDS: Lurasidone(*) 40 MG TAB PO SCH (17:54)
[2019-07-27] MEDS: Vitamin THERAPEUTIC TAB PO SCH (08:38)
[2019-07-27] MEDS: Lithium Carbonate ER* 450 MG TAB.ER PO SCH ×3 (08:39→21:20)
[2019-07-27] MEDS: Lurasidone(*) 40 MG TAB PO SCH (17:42)
[2019-07-28] MEDS: Lithium Carbonate ER* 450 MG TAB.ER PO SCH ×3 (09:11→21:24)
[2019-07-28] MEDS: Vitamin THERAPEUTIC TAB PO SCH (09:11)
[2019-07-28] MEDS: Lurasidone(*) 40 MG TAB PO SCH (17:33)
[2019-07-29] MEDS: Vitamin THERAPEUTIC TAB PO SCH (10:25)
[2019-07-29] MEDS: Lithium Carbonate ER* 450 MG TAB.ER PO SCH ×3 (10:25→21:49)
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
[2019-07-29] MEDS: Lurasidone(*) 40 MG TAB PO SCH (17:30)
[2019-07-30] MEDS: Lithium Carbonate ER* 450 MG TAB.ER PO SCH ×3 (09:01→21:11)
[2019-07-30] MEDS: Vitamin THERAPEUTIC TAB PO SCH (09:01)
--- NOTE | 2019-07-30 11:21 | PN ---
BSU: Group Therapy Note - Service Type Service Type: [id number] Group Psychotherapy - Group Psychotherapy Note: Jarrod attended group and remained in good behavioral control. He continues to offer disorganized conversation that attempts to contradicte clinical points. His insight and judgement continue to impress as impaired.
[2019-07-30] MEDS: Lurasidone(*) 40 MG TAB PO SCH (17:44)
[2019-07-31] MEDS: Vitamin THERAPEUTIC TAB PO SCH (09:08)
[2019-07-31] MEDS: Lithium Carbonate ER* 450 MG TAB.ER PO SCH ×3 (09:08→20:09)
--- NOTE | 2019-07-31 11:37 | PN ---
Subjective - Subjective Date of Service: 07/31/19 Service Type: [id number] Hosp care 35 min high complexity Subjective: Jarrod is seen for his second court retention hearing today, as the Hospital again requires judicial approval for his continued inpatient treatment. During the proceedings he remained paranoid, accusing this clinician of lying and voicing his need to carry a weapon in the community for his personal safety and to keep law enforcement officials from getting too close. "If you have a weapon on you then they will call in backup and keep their distance." He continues to make statements about violence and is hyperverbal and irritable. Objective - General Observations Appearance: Well Groomed Appears Stated Age: Yes Stature: Thin Posture: WNL Eye Contact: Intermittent Behavior/Activity: Accelerated - Interaction Observations Attitude Towards Examiner: Hostile Stated Mood: Dysphoric Affect: Labile Speech Pattern/Tone: Pressured Thought Process: Tangential Thought Content: Paranoid, Grandiose Thought Process: Lethality: Homicidal Ideation, Paranoid Ideation Hallucination Type: None Delusion Type: Persecution, Grandeur - Cognitive Function Orientation: A&O x 4 Level of Consciousness: Awake Cognition: WNL Estimated Intelligence: Normal Insight: WNL Judgment Within Normal Limits: Yes - Medication Compliance Cooperative with Inpatient Medication Regimen: Yes - Group Participation Participates in Group Activities: Partial Assessment - Assessment Merits Inpatient Hospitalization: For Immediate Safety, For Stabilization Inpatient DSM-V Dx: F25.0 Clinical Impression: 29 y.o. single, homeless, white male with a history of schizoaffective disorder , currently a client of the ACT team, who arrives on a 9.55 involuntary legal status after making homicidal threats directed at law enforcement and acknowledging having multiple weapons in his car. Plan - Plan Treatment Plan: Name: BARTOLO WOODWARD Birthdate: 1990 [id number] We have resumed lurasidone 40mg PO q1700 and added lithium ER, now at 450mg PO TID. Consider increased lithium dose. Patient warrants further inpatient care in a locked, secured setting and will require State Hospitalization. Continued Medication Management: Start Medication Medications: Current Medications Acetaminophen (Tylenol Tab*) 650 mg PO Q4H PRN PRN Reason: for pain; or Temp >101 F Al Hydrox/Mg Hydrox/Simethicone (Maalox Plus*) 30 ml PO Q4H PRN PRN Reason: INDIGESTION Albuterol (Ventolin Hfa Inhaler*) 2 puff INH Q4H PRN PRN Reason: SOB/WHEEZING Last Admin: 07/15/19 09:58 Dose: 2 puff Bacitracin (Bacitracin Ointment*) 1 applic TOPICAL TID PRN PRN Reason: RASH Last Admin: 07/17/19 05:36 Dose: 1 applic Chlorpromazine HCl (Thorazine Tab*) 50 mg PO Q6H PRN PRN Reason: AGITATION Last Admin: 07/24/19 10:05 Dose: 50 mg Diphenhydramine HCl (Benadryl Po*) 50 mg PO Q6H PRN PRN Reason: AGITATION Last Admin: 07/16/19 13:12 Dose: 50 mg [place] Carbonate ([place] Carbonate Er Tab*) 450 mg PO TID [facility] Last Admin: 07/31/19 09:08 Dose: 450 mg Lurasidone HCl (Latuda) 40 mg PO 1700 [facility] Last Admin: 07/30/19 17:44 Dose: 40 mg Multivitamins (Theragran Tab*) 1 tab PO DAILY [facility] Last Admin: 07/31/19 09:08 Dose: 1 tab Nicotine Polacrilex (Nicotine Gum*) 2 mg PO Q2H PRN PRN Reason: CRAVING Zolpidem Tartrate (Ambien Tab*) 5 mg PO ONCE PRN PRN Reason: INSOMNIA - Discharge Plan Discharge Plan: Consider Longer Term Tx
[2019-07-31] MEDS: Lurasidone(*) 40 MG TAB PO SCH (17:31)
[2019-08-01] MEDS: Lithium Carbonate ER* 450 MG TAB.ER PO SCH ×2 (09:10→20:49)
[2019-08-01] MEDS: Vitamin THERAPEUTIC TAB PO SCH (09:11)
[2019-08-01] MEDS: Lurasidone(*) 40 MG TAB PO SCH (17:43)
[2019-08-01] MEDS ORDERED: Lithium Carbonate ER* 450 MG TAB.ER ONE (20:54)
[2019-08-02] MEDS: Lithium Carbonate ER* 450 MG TAB.ER PO SCH ×2 (08:38→20:19)
[2019-08-02] MEDS: Vitamin THERAPEUTIC TAB PO SCH (08:38)
--- NOTE | 2019-08-02 12:40 | PN ---
Subjective - Subjective Date of Service: 08/02/19 Service Type: [id number] Hosp care 15 min low complexity Subjective: Jarrod only slept 2.5 hours last night and remains manic. He is alleged to have told multiple staff that he intends to spit on this observer, however, this does not occur during our interaction. Instead he requests computer privileges and to take the MMPI. "I want to take it. I want to prove to you that I'm not crazy so that you'll let me out of this place!" He denies SI or HI but continues to state that he will carry a weapon on him at all times to frighten law enforcement away from him. Objective - General Observations Appearance: Disheveled Appears Stated Age: Yes Stature: Thin Posture: WNL Eye Contact: Intense Behavior/Activity: Accelerated - Interaction Observations Attitude Towards Examiner: Demanding Stated Mood: Irritable Affect: Labile Speech Pattern/Tone: Pressured Thought Process: Tangential Thought Content: Paranoid, Grandiose Thought Process: Lethality: Paranoid Ideation Hallucination Type: None Delusion Type: Persecution, Grandeur - Cognitive Function Orientation: A&O x 4 Level of Consciousness: Awake Cognition: WNL Estimated Intelligence: Normal Insight: Mostly Blames Others for Problems Judgment Within Normal Limits: Yes Ability to Make Reasonable Decisions: Serverely Impaired - Medication Compliance Cooperative with Inpatient Medication Regimen: Yes - Group Participation Participates in Group Activities: Yes Assessment - Assessment Merits Inpatient Hospitalization: For Immediate Safety, For Stabilization Inpatient DSM-V Dx: F25.0 Clinical Impression: 29 y.o. single, homeless, white male with a history of schizoaffective disorder , currently a client of the ACT team, who arrives on a 9.55 involuntary legal status after making homicidal threats directed at law enforcement and acknowledging having multiple weapons in his car. Plan - Plan Treatment Plan: Name: BARTOLO WOODWARD Birthdate: 1990 [id number] We have resumed lurasidone 40mg PO q1700 and added lithium ER, now at 900mg PO BID. Next lithium level due on August 05. Patient warrants further inpatient care in a locked, secured setting and will require State Hospitalization. Continued Medication Management: Start Medication Medications: Current Medications Acetaminophen (Tylenol Tab*) 650 mg PO Q4H PRN PRN Reason: for pain; or Temp >101 F Al Hydrox/Mg Hydrox/Simethicone (Maalox Plus*) 30 ml PO Q4H PRN PRN Reason: INDIGESTION Albuterol (Ventolin Hfa Inhaler*) 2 puff INH Q4H PRN PRN Reason: SOB/WHEEZING Last Admin: 07/15/19 09:58 Dose: 2 puff Bacitracin (Bacitracin Ointment*) 1 applic TOPICAL TID PRN PRN Reason: RASH Last Admin: 07/17/19 05:36 Dose: 1 applic Chlorpromazine HCl (Thorazine Tab*) 50 mg PO Q6H PRN PRN Reason: AGITATION Last Admin: 07/24/19 10:05 Dose: 50 mg Diphenhydramine HCl (Benadryl Po*) 50 mg PO Q6H PRN PRN Reason: AGITATION Last Admin: 07/16/19 13:12 Dose: 50 mg [place] Carbonate ([place] Carbonate Er Tab*) 900 mg PO BID [facility] Last Admin: 08/02/19 08:38 Dose: 900 mg Lurasidone HCl (Latuda) 40 mg PO 1700 [facility] Last Admin: 08/01/19 17:43 Dose: 40 mg Multivitamins (Theragran Tab*) 1 tab PO DAILY [facility] Last Admin: 08/02/19 08:38 Dose: 1 tab Nicotine Polacrilex (Nicotine Gum*) 2 mg PO Q2H PRN PRN Reason: CRAVING Zolpidem Tartrate (Ambien Tab*) 5 mg PO ONCE PRN PRN Reason: INSOMNIA - Discharge Plan Discharge Plan: Consider Longer Term Tx
[2019-08-02] MEDS: Lurasidone(*) 40 MG TAB PO SCH (17:51)
[2019-08-03] MEDS: Lithium Carbonate ER* 450 MG TAB.ER PO SCH ×2 (08:57→20:59)
[2019-08-03] MEDS: Vitamin THERAPEUTIC TAB PO SCH (08:57)
[2019-08-03] MEDS: Lurasidone(*) 40 MG TAB PO SCH (17:55)
[2019-08-04] MEDS: Lithium Carbonate ER* 450 MG TAB.ER PO SCH ×2 (08:55→19:43)
[2019-08-04] MEDS: Vitamin THERAPEUTIC TAB PO SCH (08:55)
[2019-08-04] MEDS: Lurasidone(*) 40 MG TAB PO SCH (19:43)
[2019-08-05] MEDS: Vitamin THERAPEUTIC TAB PO SCH (10:12)
[2019-08-05] MEDS: Lithium Carbonate ER* 450 MG TAB.ER PO SCH ×2 (10:12→20:15)
--- NOTE | 2019-08-05 13:00 | PN ---
Subjective - Subjective Date of Service: 08/05/19 Service Type: [id number] Hosp care 15 min low complexity Subjective: Jarrod remains hyperverbal and argumentative. We speak at length today and he tells me that he will avoid police interactions by wearing a "Go-Pro" video recording on his person whenever he is in public. He continues to be litigious , saying that he will rodger the police for a number of different ways in which they've done him wrong. He is adherent with medications and his lithium level is finally therapeutic. He denies SI or HI. Objective - General Observations Appearance: Disheveled Appears Stated Age: Yes Stature: WNL Posture: WNL Eye Contact: Intense Behavior/Activity: Impulsive - Interaction Observations Attitude Towards Examiner: Hostile Stated Mood: Irritable Affect: Labile Speech Pattern/Tone: Excessive, Pressured Thought Process: Tangential Thought Content: Preoccupation/Ruminations, Paranoid, Grandiose Thought Process: Lethality: Paranoid Ideation Hallucination Type: None Delusion Type: Persecution, Grandeur - Cognitive Function Orientation: A&O x 4 Level of Consciousness: Awake, Alert Cognition: WNL Estimated Intelligence: Normal Insight: Mostly Blames Others for Problems Judgment Within Normal Limits: No Ability to Make Reasonable Decisions: Serverely Impaired - Medication Compliance Cooperative with Inpatient Medication Regimen: Yes - Group Participation Participates in Group Activities: Yes Assessment - Assessment Merits Inpatient Hospitalization: For Immediate Safety, For Stabilization Inpatient DSM-V Dx: F25.0 Clinical Impression: 29 y.o. single, homeless, white male with a history of schizoaffective disorder , currently a client of the ACT team, who arrives on a 9.55 involuntary legal status after making homicidal threats directed at law enforcement and acknowledging having multiple weapons in his car. Plan - Plan Treatment Plan: Name: BARTOLO WOODWARD Birthdate: 1990 [id number] We have resumed lurasidone 40mg PO q1700 and added lithium ER, now at 900mg PO BID. [place] level this AM was therapeutic at 1.14. Patient warrants further inpatient care in a locked, secured setting and will require State Hospitalization. Continued Medication Management: Start Medication Medications: Current Medications Acetaminophen (Tylenol Tab*) 650 mg PO Q4H PRN PRN Reason: for pain; or Temp >101 F Al Hydrox/Mg Hydrox/Simethicone (Maalox Plus*) 30 ml PO Q4H PRN PRN Reason: INDIGESTION Albuterol (Ventolin Hfa Inhaler*) 2 puff INH Q4H PRN PRN Reason: SOB/WHEEZING Last Admin: 07/15/19 09:58 Dose: 2 puff Bacitracin (Bacitracin Ointment*) 1 applic TOPICAL TID PRN PRN Reason: RASH Last Admin: 07/17/19 05:36 Dose: 1 applic Chlorpromazine HCl (Thorazine Tab*) 50 mg PO Q6H PRN PRN Reason: AGITATION Last Admin: 07/24/19 10:05 Dose: 50 mg Diphenhydramine HCl (Benadryl Po*) 50 mg PO Q6H PRN PRN Reason: AGITATION Last Admin: 07/16/19 13:12 Dose: 50 mg [place] Carbonate ([place] Carbonate Er Tab*) 900 mg PO BID [facility] Last Admin: 08/05/19 10:12 Dose: 900 mg Lurasidone HCl (Latuda) 40 mg PO 1700 [facility] Last Admin: 08/04/19 19:43 Dose: 40 mg Multivitamins (Theragran Tab*) 1 tab PO DAILY [facility] Last Admin: 08/05/19 10:12 Dose: 1 tab Nicotine Polacrilex (Nicotine Gum*) 2 mg PO Q2H PRN PRN Reason: CRAVING - Discharge Plan Discharge Plan: Consider Longer Term Tx
[2019-08-05] MEDS: Lurasidone(*) 40 MG TAB PO SCH (17:33)
[2019-08-06] MEDS: Lithium Carbonate ER* 450 MG TAB.ER PO SCH ×2 (08:34→21:08)
[2019-08-06] MEDS: Vitamin THERAPEUTIC TAB PO SCH (08:35)
[2019-08-06] MEDS: Lurasidone(*) 40 MG TAB PO SCH (17:18)
[2019-08-07] MEDS: Vitamin THERAPEUTIC TAB PO SCH (08:33)
[2019-08-07] MEDS: Lithium Carbonate ER* 450 MG TAB.ER PO SCH ×2 (08:33→21:24)
--- NOTE | 2019-08-07 12:04 | PN ---
Subjective - Subjective Date of Service: 08/07/19 Service Type: [id number] Hosp care 15 min low complexity Subjective: Jarrod remains litigious and preoccupied with perceived missteps by local law enforcement. He complains of excessive thirst, headache and dizziness from lithium. Patient talks about microdosing with LSD prior to admission and how he would like to give hallucinogens to other patients on the unit "to see if it could break them out of their cycles." He is cooperative but argumentative at times on the unit. Objective - General Observations Appearance: Well Groomed Appears Stated Age: Yes Stature: Thin Posture: WNL Eye Contact: Intense Behavior/Activity: Impulsive - Interaction Observations Attitude Towards Examiner: Defensive Stated Mood: Dysphoric, Irritable Affect: Restricted Speech Pattern/Tone: Excessive Thought Process: Tangential Thought Content: Paranoid Thought Process: Lethality: Paranoid Ideation Hallucination Type: None Delusion Type: Persecution - Cognitive Function Orientation: A&O x 4 Level of Consciousness: Awake Cognition: WNL Estimated Intelligence: Normal Insight: Difficulty Acknowledging Presence of Psyciatric Problems Judgment Within Normal Limits: No Ability to Make Reasonable Decisions: Serverely Impaired - Medication Compliance Cooperative with Inpatient Medication Regimen: Yes - Group Participation Participates in Group Activities: Yes Assessment - Assessment Merits Inpatient Hospitalization: For Immediate Safety, For Stabilization Inpatient DSM-V Dx: F25.0 Clinical Impression: 29 y.o. single, homeless, white male with a history of schizoaffective disorder , currently a client of the ACT team, who arrives on a 9.55 involuntary legal status after making homicidal threats directed at law enforcement and acknowledging having multiple weapons in his car. Plan - Plan Treatment Plan: Name: BARTOLO WOODWARD Birthdate: 1990 [id number] We have resumed lurasidone 40mg PO q1700 and added lithium ER, now at 900mg PO BID. [place] level is therapeutic at 1.14, however, patient having side effects. Will lower dose to 750mg in morning and 900mg at night. Patient warrants further inpatient care in a locked, secured setting and will require State Hospitalization. Continued Medication Management: Start Medication Medications: Current Medications Acetaminophen (Tylenol Tab*) 650 mg PO Q4H PRN PRN Reason: for pain; or Temp >101 F Al Hydrox/Mg Hydrox/Simethicone (Maalox Plus*) 30 ml PO Q4H PRN PRN Reason: INDIGESTION Albuterol (Ventolin Hfa Inhaler*) 2 puff INH Q4H PRN PRN Reason: SOB/WHEEZING Last Admin: 07/15/19 09:58 Dose: 2 puff Bacitracin (Bacitracin Ointment*) 1 applic TOPICAL TID PRN PRN Reason: RASH Last Admin: 07/17/19 05:36 Dose: 1 applic Chlorpromazine HCl (Thorazine Tab*) 50 mg PO Q6H PRN PRN Reason: AGITATION Last Admin: 07/24/19 10:05 Dose: 50 mg Diphenhydramine HCl (Benadryl Po*) 50 mg PO Q6H PRN PRN Reason: AGITATION Last Admin: 07/16/19 13:12 Dose: 50 mg [place] Carbonate ([place] Carbonate Er Tab*) 900 mg PO BID [facility] Last Admin: 08/07/19 08:33 Dose: 900 mg Lurasidone HCl (Latuda) 40 mg PO 1700 [facility] Last Admin: 08/06/19 17:18 Dose: 40 mg Multivitamins (Theragran Tab*) 1 tab PO DAILY [facility] Last Admin: 08/07/19 08:33 Dose: 1 tab Nicotine Polacrilex (Nicotine Gum*) 2 mg PO Q2H PRN PRN Reason: CRAVING Zolpidem Tartrate (Ambien Tab*) 5 mg PO ONCE PRN PRN Reason: INSOMNIA - Discharge Plan Discharge Plan: Consider Longer Term Tx
[2019-08-07] MEDS: Lurasidone(*) 40 MG TAB PO SCH (17:35)
[2019-08-08] MEDS: Vitamin THERAPEUTIC TAB PO SCH (08:22)
[2019-08-08] MEDS: Lithium Carbonate ER* 450 MG TAB.ER PO SCH ×2 (08:22→20:53)
[2019-08-08] MEDS: Lurasidone(*) 40 MG TAB PO SCH (18:07)
[2019-08-09] MEDS: Vitamin THERAPEUTIC TAB PO SCH (09:29)
[2019-08-09] MEDS: Lithium Carbonate ER* 450 MG TAB.ER PO SCH ×2 (09:29→21:50)
--- NOTE | 2019-08-09 12:54 | PN ---
Subjective - Subjective Date of Service: 08/09/19 Service Type: [id number] Hosp care 15 min low complexity Subjective: Jarrod is holding court in the day area, surrounded by staff and peers, going on at length about the relationship he has with his pets. He appears to be tolerating lithium therapy well and voices no side effects today. He continues to perseverate about how this treatment experience is harming him by keeping him from getting a new apartment and a free [place]. He denies SI or HI. Objective - General Observations Appearance: Well Groomed Appears Stated Age: Yes Stature: Thin Posture: WNL Eye Contact: Intense Behavior/Activity: Accelerated - Interaction Observations Attitude Towards Examiner: Hostile Stated Mood: Expansive, Irritable Affect: Labile Speech Pattern/Tone: Excessive Thought Process: Tangential Thought Content: Paranoid, Grandiose Thought Process: Lethality: Paranoid Ideation Hallucination Type: None Delusion Type: Persecution, Grandeur - Cognitive Function Orientation: A&O x 4 Level of Consciousness: Awake, Alert Cognition: WNL Estimated Intelligence: Normal Insight: Difficulty Acknowledging Presence of Psyciatric Problems Judgment Within Normal Limits: No Ability to Make Reasonable Decisions: Serverely Impaired - Medication Compliance Cooperative with Inpatient Medication Regimen: Yes - Group Participation Participates in Group Activities: Yes Assessment - Assessment Merits Inpatient Hospitalization: For Immediate Safety, For Stabilization Inpatient DSM-V Dx: F25.0 Clinical Impression: 29 y.o. single, homeless, white male with a history of schizoaffective disorder , currently a client of the ACT team, who arrives on a 9.55 involuntary legal status after making homicidal threats directed at law enforcement and acknowledging having multiple weapons in his car. Plan - Plan Treatment Plan: Name: BARTLOO WOODWARD Birthdate: 1990 [id number] We have resumed lurasidone 40mg PO q1700 and added lithium ER, now at 450mg PO qam and 900mg PO qhs. Patient warrants further inpatient care in a locked, secured setting and will require State Hospitalization. Continued Medication Management: Start Medication Medications: Current Medications Acetaminophen (Tylenol Tab*) 650 mg PO Q4H PRN PRN Reason: for pain; or Temp >101 F Al Hydrox/Mg Hydrox/Simethicone (Maalox Plus*) 30 ml PO Q4H PRN PRN Reason: INDIGESTION Albuterol (Ventolin Hfa Inhaler*) 2 puff INH Q4H PRN PRN Reason: SOB/WHEEZING Last Admin: 07/15/19 09:58 Dose: 2 puff Bacitracin (Bacitracin Ointment*) 1 applic TOPICAL TID PRN PRN Reason: RASH Last Admin: 07/17/19 05:36 Dose: 1 applic Chlorpromazine HCl (Thorazine Tab*) 50 mg PO Q6H PRN PRN Reason: AGITATION Last Admin: 07/24/19 10:05 Dose: 50 mg Diphenhydramine HCl (Benadryl Po*) 50 mg PO Q6H PRN PRN Reason: AGITATION Last Admin: 07/16/19 13:12 Dose: 50 mg [place] Carbonate ([place] Carbonate Er Tab*) 450 mg PO QAM [facility] Last Admin: 08/09/19 09:29 Dose: 450 mg [place] Carbonate ([place] Carbonate Er Tab*) 900 mg PO BEDTIME [facility] Last Admin: 08/08/19 20:53 Dose: 900 mg Lurasidone HCl (Latuda) 40 mg PO 1700 [facility] Last Admin: 08/08/19 18:07 Dose: 40 mg Multivitamins (Theragran Tab*) 1 tab PO DAILY [facility] Last Admin: 08/09/19 09:29 Dose: 1 tab Nicotine Polacrilex (Nicotine Gum*) 2 mg PO Q2H PRN PRN Reason: CRAVING Zolpidem Tartrate (Ambien Tab*) 5 mg PO ONCE PRN PRN Reason: INSOMNIA - Discharge Plan Discharge Plan: Consider Longer Term Tx
--- NOTE | 2019-08-09 13:26 | CONS ---
PSYCHOLOGICAL REPORT: DATE OF CONSULT: 08/08/19 PROCEDURE CODE: [id number]. REASON FOR REFERRAL: Zafar was self-referred hoping that taking the personality test would exonerate him of any clinical concerns and facilitate discharge. TEST ADMINISTERED: Zafar completed the [place] Multiphasic Personality Inventory-II (MMPI-II). He was given feedback in individual conversation. Zafar has also been seen by this procedure writer sporadically in cognitive behavioral group psychotherapy. RELEVANT HISTORY: Zafar historically has diagnosis of schizoaffective disorder, bipolar type, which continues to be indicated. His initial presentation during this hospitalization, which began on 07/09/19 included homicidal references towards police officers, with Jarrod describing how it is legal to kill a police academy instructor in a certain circumstance. He, of late, has backed away from making homicidal threats either towards police officers or staff, but has recently continued to threaten to spit on his providing psychiatrist. Although, he has remained in good behavioral control, he continued to discuss very violent ideation in a perseverative fashion and has very poor insight regarding the negative effect this has on his continuing psychiatry placement. Most discussion with Jarrod involves conversation about him feeling threatened by other people and reacting in turn with threats or violence, his descriptions often include presenting the knife to people or more recently apparently a hammer. He quite remarkably described extorting people in the community when questioned about why people are angry with him. He replied that "it is because of all the bt I do" and then began to elaborate on extorting more than one person in the community. He also alluded to concerns regarding the black community in [place] describing 2 significant families where he is involved in some form of malfeasance. This is all thought to be delusional, which is reflected in Jarrod's very narcissistic and at times grandiose presentation. Zafar's behavioral presentation typically includes being hyperverbal and as mentioned perseverating on discussion of homicidal or violent acting out. These discussions typically include justified use of violence as means of some protection typically. His insight and judgment remain impaired despite rather protracted hospitalization at this point in time, which also has included compliance with recommended medications. Suspicions regarding diagnoses also include antisocial personality disorder with narcissistic and grandiose features. Jarrod typically presents with good affect and is very social on the unit, although he tends to irritate peers in the end secondary to his egocentric need for controlling the conversation. TEST RESULTS: Zafar provides a valid protocol on this administration of MMPI- II with clinical elevations occurring quite predictably on psychopathic deviate and hypomania scales (T = 80; T = 72) respectively. He also has a minor elevation on the schizophrenia scale. Persons with this code type are described as often exhibiting very poor judgment and they tend to act out without consideration of the consequences of their actions and had difficulty learning from such experience. They are generally described as being unwilling to accept responsibility for their own behavior and exhibit persistent tendencies to get in trouble interpersonally as well as legally. Persons with this test response type typically employ acting out as primary defence mechanism and employ rationalization secondary to aggressive conduct. Although , these persons tend to be very social and mix easily with others, they have difficulty making substantial longer term relationships characterized by impulsivity, distressed, and lack of empathy as well as a great deal of egocentricity. Persons with this code type tend to exhibit enduring tendencies to get into legal trouble and engage in an antisocial criminal acts are not uncommon. Prognosis for such people are guarded, often there is a perseverative quality to this behavioral disruptions with propensity towards rationalization of aggressive behavior. IMPRESSIONS AND RECOMMENDATIONS: Currently, Zafar is being considered for transfer to state hospital for intermediate term treatment. Concerns regarding violent acting out are an enduring feature of his presentation and continue despite relatively already long-term psychiatric hospitalization. As mentioned , his insight and judgment are thought to remain impaired and he has an inability seemingly to accept a responsibility for his use of language and the impact that his justification of threats have on both peers and professional staff involved in this treatment. Diagnostic impression remains schizoaffective disorder, bipolar type, characterized by grandiose and narcissistic tendencies; antisocial personality disorder is also indicated. [id number]/[facility] #: [id number] [facility] SYSTEMMary Grace
[2019-08-09] MEDS: Lurasidone(*) 40 MG TAB PO SCH (17:13)
[2019-08-10] MEDS: Lithium Carbonate ER* 450 MG TAB.ER PO SCH ×2 (08:19→20:38)
[2019-08-10] MEDS: Vitamin THERAPEUTIC TAB PO SCH (08:19)
[2019-08-10] MEDS: Lurasidone(*) 40 MG TAB PO SCH (17:20)
[2019-08-11] MEDS: Vitamin THERAPEUTIC TAB PO SCH (08:46)
[2019-08-11] MEDS: Lithium Carbonate ER* 450 MG TAB.ER PO SCH ×2 (08:46→21:53)
--- NOTE | 2019-08-11 16:47 | PN ---
Progress Note - Progress Note Date of Service: 08/11/19 Note: I met with Mr. Mckenna following several direct and indirect requests to meet with me over the course of the weekend. After we sat down to speak, he requested a complete psychiatric reassessment to facilitate discharge instead of transfer to state hospital. I explained to him that I could not do that for him, but if he had any less global requests of me for modification of his care plan, I would be glad to be of service to him. Mr. Mckenna reported that he did not have any other request of me than to meet with him for as long as it might take to form an opinion of his case that would support his appeal for discharge. Patient expressed disappointment that I could not fulfill such a request.
[2019-08-11] MEDS: Lurasidone(*) 40 MG TAB PO SCH (17:25)
[2019-08-12] MEDS: Vitamin THERAPEUTIC TAB PO SCH (09:35)
[2019-08-12] MEDS: Lithium Carbonate ER* 450 MG TAB.ER PO SCH ×2 (09:35→21:24)
--- NOTE | 2019-08-12 16:03 | PN ---
Subjective - Subjective Date of Service: 08/12/19 Service Type: [id number] Hosp care 15 min low complexity Subjective: Jarrod remains grandiose, telling me that the [place] police department knows him and respects his extensive knowledge of the law. The State Police and [employer], however, are incompetent and in need of a huge lawsuit by him to mend their ways. "I'm tired of treating these patients in here and making it so they're no longer delusional. They get better and get discharged while I'm still stuck in here. This isn't helping me." He is adherent with medications and groups. He denies SI or HI. Objective - General Observations Appearance: Disheveled Appears Stated Age: Yes Stature: WNL Posture: WNL Eye Contact: Average Behavior/Activity: Accelerated - Interaction Observations Attitude Towards Examiner: Cooperative Stated Mood: Expansive Affect: Labile Speech Pattern/Tone: Excessive Thought Process: Tangential Thought Content: Paranoid, Grandiose Thought Process: Lethality: Paranoid Ideation Hallucination Type: None Delusion Type: Persecution, Grandeur - Cognitive Function Orientation: A&O x 4 Level of Consciousness: Awake Cognition: WNL Estimated Intelligence: Normal Insight: Mostly Blames Others for Problems Judgment Within Normal Limits: No Ability to Make Reasonable Decisions: Serverely Impaired - Medication Compliance Cooperative with Inpatient Medication Regimen: Yes - Group Participation Participates in Group Activities: Yes Assessment - Assessment Merits Inpatient Hospitalization: For Immediate Safety, For Stabilization Inpatient DSM-V Dx: F25.0 Clinical Impression: 29 y.o. single, homeless, white male with a history of schizoaffective disorder , currently a client of the ACT team, who arrives on a 9.55 involuntary legal status after making homicidal threats directed at law enforcement and acknowledging having multiple weapons in his car. Plan - Plan Treatment Plan: Name: BARTOLO WOODWARD Birthdate: 1990 [id number] We have resumed lurasidone 40mg PO q1700 and added lithium ER, now at 450mg PO qam and 900mg PO qhs. Patient warrants further inpatient care in a locked, secured setting and will require State Hospitalization. Continued Medication Management: Start Medication Medications: Current Medications Acetaminophen (Tylenol Tab*) 650 mg PO Q4H PRN PRN Reason: for pain; or Temp >101 F Al Hydrox/Mg Hydrox/Simethicone (Maalox Plus*) 30 ml PO Q4H PRN PRN Reason: INDIGESTION Albuterol (Ventolin Hfa Inhaler*) 2 puff INH Q4H PRN PRN Reason: SOB/WHEEZING Last Admin: 07/15/19 09:58 Dose: 2 puff Bacitracin (Bacitracin Ointment*) 1 applic TOPICAL TID PRN PRN Reason: RASH Last Admin: 07/17/19 05:36 Dose: 1 applic Chlorpromazine HCl (Thorazine Tab*) 50 mg PO Q6H PRN PRN Reason: AGITATION Last Admin: 07/24/19 10:05 Dose: 50 mg Diphenhydramine HCl (Benadryl Po*) 50 mg PO Q6H PRN PRN Reason: AGITATION Last Admin: 07/16/19 13:12 Dose: 50 mg [place] Carbonate ([place] Carbonate Er Tab*) 450 mg PO QAM [facility] Last Admin: 08/12/19 09:35 Dose: 450 mg [place] Carbonate ([place] Carbonate Er Tab*) 900 mg PO BEDTIME [facility] Last Admin: 08/11/19 21:53 Dose: 900 mg Lurasidone HCl (Latuda) 40 mg PO 1700 [facility] Last Admin: 08/11/19 17:25 Dose: 40 mg Multivitamins (Theragran Tab*) 1 tab PO DAILY [facility] Last Admin: 08/12/19 09:35 Dose: 1 tab Nicotine Polacrilex (Nicotine Gum*) 2 mg PO Q2H PRN PRN Reason: CRAVING Zolpidem Tartrate (Ambien Tab*) 5 mg PO ONCE PRN PRN Reason: INSOMNIA - Discharge Plan Discharge Plan: Consider Longer Term Tx
[2019-08-12] MEDS: Lurasidone(*) 40 MG TAB PO SCH (17:36)
[2019-08-13] MEDS: Lithium Carbonate ER* 450 MG TAB.ER PO SCH ×2 (08:35→21:39)
[2019-08-13] MEDS: Vitamin THERAPEUTIC TAB PO SCH (08:35)
[2019-08-13] MEDS: Lurasidone(*) 40 MG TAB PO SCH (17:46)
[2019-08-14] MEDS: Vitamin THERAPEUTIC TAB PO SCH (09:21)
[2019-08-14] MEDS: Lithium Carbonate ER* 450 MG TAB.ER PO SCH ×2 (09:21→22:08)
--- NOTE | 2019-08-14 11:33 | PN ---
Subjective - Subjective Date of Service: 08/14/19 Service Type: [id number] Hosp care 15 min low complexity Subjective: Jarrod remains long-winded, going on a tangent about what is legal versus illegal when interacting with the police. "They are your servant and you can yell at them as loud as you want to and they have to listen." He is adherent with labs and groups and denies SI or HI. Objective - General Observations Appearance: Disheveled Appears Stated Age: Yes Stature: Thin Posture: WNL Eye Contact: Intense Behavior/Activity: Accelerated - Interaction Observations Attitude Towards Examiner: Demanding Stated Mood: Irritable Affect: Labile Speech Pattern/Tone: Excessive, Pressured Thought Process: Tangential Thought Process: Lethality: Paranoid Ideation Hallucination Type: None Delusion Type: Persecution, Grandeur - Cognitive Function Orientation: A&O x 4 Level of Consciousness: Awake Cognition: WNL Estimated Intelligence: Normal Insight: Difficulty Acknowledging Presence of Psyciatric Problems Judgment Within Normal Limits: No Ability to Make Reasonable Decisions: Serverely Impaired - Medication Compliance Cooperative with Inpatient Medication Regimen: Yes - Group Participation Participates in Group Activities: Yes Assessment - Assessment Merits Inpatient Hospitalization: For Immediate Safety, For Stabilization Inpatient DSM-V Dx: F25.0 Clinical Impression: 29 y.o. single, homeless, white male with a history of schizoaffective disorder , currently a client of the ACT team, who arrives on a 9.55 involuntary legal status after making homicidal threats directed at law enforcement and acknowledging having multiple weapons in his car. Plan - Plan Treatment Plan: Name: BARTOLO WOODWARD Birthdate: 1990 [id number] We have resumed lurasidone 40mg PO q1700 and added lithium ER, now at 450mg PO qam and 900mg PO qhs. Patient warrants further inpatient care in a locked, secured setting and will require State Hospitalization. Continued Medication Management: Start Medication Medications: Current Medications Acetaminophen (Tylenol Tab*) 650 mg PO Q4H PRN PRN Reason: for pain; or Temp >101 F Al Hydrox/Mg Hydrox/Simethicone (Maalox Plus*) 30 ml PO Q4H PRN PRN Reason: INDIGESTION Albuterol (Ventolin Hfa Inhaler*) 2 puff INH Q4H PRN PRN Reason: SOB/WHEEZING Last Admin: 07/15/19 09:58 Dose: 2 puff Bacitracin (Bacitracin Ointment*) 1 applic TOPICAL TID PRN PRN Reason: RASH Last Admin: 07/17/19 05:36 Dose: 1 applic Chlorpromazine HCl (Thorazine Tab*) 50 mg PO Q6H PRN PRN Reason: AGITATION Last Admin: 07/24/19 10:05 Dose: 50 mg Diphenhydramine HCl (Benadryl Po*) 50 mg PO Q6H PRN PRN Reason: AGITATION Last Admin: 07/16/19 13:12 Dose: 50 mg [place] Carbonate ([place] Carbonate Er Tab*) 450 mg PO QAM [facility] Last Admin: 08/14/19 09:21 Dose: 450 mg [place] Carbonate ([place] Carbonate Er Tab*) 900 mg PO BEDTIME [facility] Last Admin: 08/13/19 21:39 Dose: 900 mg Lurasidone HCl (Latuda) 40 mg PO 1700 [facility] Last Admin: 08/13/19 17:46 Dose: 40 mg Multivitamins (Theragran Tab*) 1 tab PO DAILY [facility] Last Admin: 08/14/19 09:21 Dose: 1 tab Nicotine Polacrilex (Nicotine Gum*) 2 mg PO Q2H PRN PRN Reason: CRAVING Zolpidem Tartrate (Ambien Tab*) 5 mg PO ONCE PRN PRN Reason: INSOMNIA - Discharge Plan Discharge Plan: Consider Longer Term Tx
[2019-08-14] MEDS: Lurasidone(*) 40 MG TAB PO SCH (17:36)
[2019-08-15] MEDS: Lithium Carbonate ER* 450 MG TAB.ER PO SCH ×2 (08:24→21:11)
[2019-08-15] MEDS: Vitamin THERAPEUTIC TAB PO SCH (08:24)
[2019-08-15] MEDS: Lurasidone(*) 40 MG TAB PO SCH (17:31)
[2019-08-16] MEDS: Lithium Carbonate ER* 450 MG TAB.ER PO SCH ×2 (08:23→21:35)
[2019-08-16] MEDS: Vitamin THERAPEUTIC TAB PO SCH (08:23)
--- NOTE | 2019-08-16 11:06 | PN ---
Subjective - Subjective Date of Service: 08/16/19 Service Type: [id number] Hosp care 15 min low complexity Subjective: Jarrod continues to be litigious and hyperverbal. He goes on for some time about how he will be exonerated by the court as he has done nothing illegal. "Listen , you can approach the digital designer when they are doing something wrong and you can tell them how to do their jobs. You have that right. I should say you have that responsibility as a citizen. There is nothing better than going to court for something that the digital designer have blamed you for and hearing the apparel stock checker say 'Not Guilty.' The sooner I get out of here the sooner I can prove that the digital designer were not doing their jobs correctly." He goes on about a variety of other topics, such as various housing and employment opportunities he has around [place], some sounding more plausible and reality-based than others. He denies SI or HI. Objective - General Observations Appearance: Disheveled Appears Stated Age: Yes Stature: WNL Posture: WNL Eye Contact: Intense Behavior/Activity: Accelerated - Interaction Observations Attitude Towards Examiner: Defensive Stated Mood: Expansive Affect: Labile Speech Pattern/Tone: Excessive, Pressured Thought Process: Tangential Thought Content: Paranoid Thought Process: Lethality: Paranoid Ideation Delusion Type: Persecution - Cognitive Function Orientation: A&O x 4 Level of Consciousness: Awake Cognition: WNL Estimated Intelligence: Normal Insight: WNL Judgment Within Normal Limits: No Ability to Make Reasonable Decisions: Serverely Impaired - Medication Compliance Cooperative with Inpatient Medication Regimen: Yes - Group Participation Participates in Group Activities: Yes Assessment - Assessment Merits Inpatient Hospitalization: For Immediate Safety, For Stabilization Inpatient DSM-V Dx: F25.0 Clinical Impression: 29 y.o. single, homeless, white male with a history of schizoaffective disorder , currently a client of the ACT team, who arrives on a 9.55 involuntary legal status after making homicidal threats directed at law enforcement and acknowledging having multiple weapons in his car. Plan - Plan Treatment Plan: Name: BARTOLO WOODWARD Birthdate: 1990 [id number] We have resumed lurasidone 40mg PO q1700 and added lithium ER, now at 450mg PO qam and 900mg PO qhs. Patient warrants further inpatient care in a locked, secured setting and will require State Hospitalization. Continued Medication Management: Start Medication Medications: Current Medications Acetaminophen (Tylenol Tab*) 650 mg PO Q4H PRN PRN Reason: for pain; or Temp >101 F Al Hydrox/Mg Hydrox/Simethicone (Maalox Plus*) 30 ml PO Q4H PRN PRN Reason: INDIGESTION Albuterol (Ventolin Hfa Inhaler*) 2 puff INH Q4H PRN PRN Reason: SOB/WHEEZING Last Admin: 07/15/19 09:58 Dose: 2 puff Bacitracin (Bacitracin Ointment*) 1 applic TOPICAL TID PRN PRN Reason: RASH Last Admin: 07/17/19 05:36 Dose: 1 applic Chlorpromazine HCl (Thorazine Tab*) 50 mg PO Q6H PRN PRN Reason: AGITATION Last Admin: 07/24/19 10:05 Dose: 50 mg Diphenhydramine HCl (Benadryl Po*) 50 mg PO Q6H PRN PRN Reason: AGITATION Last Admin: 07/16/19 13:12 Dose: 50 mg [place] Carbonate ([place] Carbonate Er Tab*) 450 mg PO QAM [facility] Last Admin: 08/16/19 08:23 Dose: 450 mg [place] Carbonate ([place] Carbonate Er Tab*) 900 mg PO BEDTIME [facility] Last Admin: 08/15/19 21:11 Dose: 900 mg Lurasidone HCl (Latuda) 40 mg PO 1700 [facility] Last Admin: 08/15/19 17:31 Dose: 40 mg Multivitamins (Theragran Tab*) 1 tab PO DAILY [facility] Last Admin: 08/16/19 08:23 Dose: 1 tab Nicotine Polacrilex (Nicotine Gum*) 2 mg PO Q2H PRN PRN Reason: CRAVING Zolpidem Tartrate (Ambien Tab*) 5 mg PO ONCE PRN PRN Reason: INSOMNIA - Discharge Plan Discharge Plan: Consider Longer Term Tx
[2019-08-16] MEDS: Lurasidone(*) 40 MG TAB PO SCH (17:33)
[2019-08-17] MEDS: Lithium Carbonate ER* 450 MG TAB.ER PO SCH ×2 (09:29→21:37)
[2019-08-17] MEDS: Vitamin THERAPEUTIC TAB PO SCH (09:29)
[2019-08-17] MEDS: Lurasidone(*) 40 MG TAB PO SCH (17:48)
[2019-08-18] MEDS: Vitamin THERAPEUTIC TAB PO SCH (08:31)
[2019-08-18] MEDS: Lithium Carbonate ER* 450 MG TAB.ER PO SCH ×2 (08:31→21:43)
[2019-08-18] MEDS: Lurasidone(*) 40 MG TAB PO SCH (17:41)
[2019-08-19] MEDS: Vitamin THERAPEUTIC TAB PO SCH (08:30)
[2019-08-19] MEDS: Lithium Carbonate ER* 450 MG TAB.ER PO SCH ×2 (08:30→21:03)
[2019-08-19] MEDS ORDERED: Zolpidem TAB* 5 MG PO PRN (09:30)
--- NOTE | 2019-08-19 11:11 | PN ---
Subjective - Subjective Date of Service: 08/19/19 Service Type: [id number] Hosp care 15 min low complexity Subjective: Jarrod remains hyperverbal and irritable with this observer. He is insisting that I promised to discharge him once his lithium was at a therapeutic level. "You're ruining my life. I have a free apartment that is ready for me to move into. The only catch is that I have to move in by August 24 or I lose it. It will also cost me $760 if I don't move in." Jarrod has been taking his medications as directed and demonstrates no side effects that are notable. He denies SI or HI. Objective - General Observations Appearance: Disheveled Appears Stated Age: No Stature: Thin Posture: WNL Eye Contact: Intense Behavior/Activity: Impulsive - Interaction Observations Attitude Towards Examiner: Demanding Stated Mood: Expansive Affect: Labile Speech Pattern/Tone: Excessive Thought Process: Tangential Thought Content: Paranoid Thought Process: Lethality: Paranoid Ideation Hallucination Type: None Delusion Type: Persecution - Cognitive Function Orientation: A&O x 4 Level of Consciousness: Awake, Alert Cognition: WNL Estimated Intelligence: Normal Insight: Mostly Blames Others for Problems Judgment Within Normal Limits: No Ability to Make Reasonable Decisions: Serverely Impaired - Medication Compliance Cooperative with Inpatient Medication Regimen: Yes - Group Participation Participates in Group Activities: Yes Assessment - Assessment Merits Inpatient Hospitalization: For Immediate Safety, For Stabilization Inpatient DSM-V Dx: F25.0 Clinical Impression: 29 y.o. single, homeless, white male with a history of schizoaffective disorder , currently a client of the ACT team, who arrives on a 9.55 involuntary legal status after making homicidal threats directed at law enforcement and acknowledging having multiple weapons in his car. Plan - Plan Treatment Plan: Name: BARTOLO WOODWARD Birthdate: 1990 [id number] We have resumed lurasidone 40mg PO q1700 and added lithium ER, now at 450mg PO qam and 900mg PO qhs. Patient warrants further inpatient care in a locked, secured setting and will require State Hospitalization. Continued Medication Management: Start Medication Medications: Current Medications Acetaminophen (Tylenol Tab*) 650 mg PO Q4H PRN PRN Reason: for pain; or Temp >101 F Al Hydrox/Mg Hydrox/Simethicone (Maalox Plus*) 30 ml PO Q4H PRN PRN Reason: INDIGESTION Albuterol (Ventolin Hfa Inhaler*) 2 puff INH Q4H PRN PRN Reason: SOB/WHEEZING Last Admin: 07/15/19 09:58 Dose: 2 puff Bacitracin (Bacitracin Ointment*) 1 applic TOPICAL TID PRN PRN Reason: RASH Last Admin: 07/17/19 05:36 Dose: 1 applic Chlorpromazine HCl (Thorazine Tab*) 50 mg PO Q6H PRN PRN Reason: AGITATION Last Admin: 07/24/19 10:05 Dose: 50 mg Diphenhydramine HCl (Benadryl Po*) 50 mg PO Q6H PRN PRN Reason: AGITATION Last Admin: 07/16/19 13:12 Dose: 50 mg [place] Carbonate ([place] Carbonate Er Tab*) 450 mg PO QAM [facility] Last Admin: 08/19/19 08:30 Dose: 450 mg [place] Carbonate ([place] Carbonate Er Tab*) 900 mg PO BEDTIME [facility] Last Admin: 08/18/19 21:43 Dose: 900 mg Lurasidone HCl (Latuda) 40 mg PO 1700 [facility] Last Admin: 08/18/19 17:41 Dose: 40 mg Multivitamins (Theragran Tab*) 1 tab PO DAILY [facility] Last Admin: 08/19/19 08:30 Dose: 1 tab Nicotine Polacrilex (Nicotine Gum*) 2 mg PO Q2H PRN PRN Reason: CRAVING Zolpidem Tartrate (Ambien Tab*) 5 mg PO ONCE PRN PRN Reason: INSOMNIA - Discharge Plan Discharge Plan: Consider Longer Term Tx
--- NOTE | 2019-08-19 11:27 | PN ---
BSU: Group Therapy Note - Service Type Service Type: [id number] Group Psychotherapy - Cognitive Behavioral Group Note: Jarrod was attentive and participatory in group this morning, particularly in discussion addressing dementia and TBI's. He has shown significant improvement in that he is more appropriate in terms of group discussion and generally refraining from allusions to violence.
[2019-08-19] MEDS: Lurasidone(*) 40 MG TAB PO SCH (17:26)
[2019-08-20] MEDS: Lithium Carbonate ER* 450 MG TAB.ER PO SCH ×2 (08:20→21:55)
[2019-08-20] MEDS: Vitamin THERAPEUTIC TAB PO SCH (08:20)
[2019-08-20] MEDS: Lurasidone(*) 40 MG TAB PO SCH (19:50)
[2019-08-21] MEDS: Lithium Carbonate ER* 450 MG TAB.ER PO SCH ×2 (08:57→20:41)
[2019-08-21] MEDS: Vitamin THERAPEUTIC TAB PO SCH (08:57)
--- NOTE | 2019-08-21 12:03 | PN ---
Subjective - Subjective Date of Service: 08/21/19 Service Type: [id number] Hosp care 15 min low complexity Subjective: Jarrod continues to be angry at this clinician, blaming me for keeping him here too long. "I only needed to be here two weeks. The rest of this is just hurting me." He has been taking his medications regularly and his behavior on the unit has been consistently under control for the past 2 weeks with no homicidal ideation and no threats towards others. He is agreeable with meeting the ACT team tomorrow to see if they will continue to work with him. Objective - General Observations Appears Stated Age: Yes Stature: WNL Posture: WNL Eye Contact: Average Behavior/Activity: WNL - Interaction Observations Attitude Towards Examiner: Cooperative Stated Mood: Euthymic Affect: Full Speech Pattern/Tone: Clear, Appropriate, Normal Volume Thought Process: Coherent Perception: WNL Thought Content: WNL Hallucination Type: None Delusion Type: None - Cognitive Function Orientation: A&O x 4 Level of Consciousness: Awake, Alert Cognition: WNL Estimated Intelligence: Normal Insight: WNL Judgment Within Normal Limits: Yes - Medication Compliance Cooperative with Inpatient Medication Regimen: Yes - Group Participation Participates in Group Activities: Yes Assessment - Assessment Merits Inpatient Hospitalization: Consolidate Improvements, Pending Safe DC Plan Inpatient DSM-V Dx: F25.0 Clinical Impression: 29 y.o. single, homeless, white male with a history of schizoaffective disorder , currently a client of the ACT team, who arrives on a 9.55 involuntary legal status after making homicidal threats directed at law enforcement and acknowledging having multiple weapons in his car. Plan - Plan Treatment Plan: Name: BARTOLO WOODWARD Birthdate: 1990 [id number] We have resumed lurasidone 40mg PO q1700 and added lithium ER, now at 450mg PO qam and 900mg PO qhs. Patient is certainly improved and we would consider discharge tomorrow (08/22) if his meeting with the ACT team is productive. Continued Medication Management: Start Medication Medications: Current Medications Acetaminophen (Tylenol Tab*) 650 mg PO Q4H PRN PRN Reason: for pain; or Temp >101 F Al Hydrox/Mg Hydrox/Simethicone (Maalox Plus*) 30 ml PO Q4H PRN PRN Reason: INDIGESTION Albuterol (Ventolin Hfa Inhaler*) 2 puff INH Q4H PRN PRN Reason: SOB/WHEEZING Last Admin: 07/15/19 09:58 Dose: 2 puff Bacitracin (Bacitracin Ointment*) 1 applic TOPICAL TID PRN PRN Reason: RASH Last Admin: 07/17/19 05:36 Dose: 1 applic Chlorpromazine HCl (Thorazine Tab*) 50 mg PO Q6H PRN PRN Reason: AGITATION Last Admin: 07/24/19 10:05 Dose: 50 mg Diphenhydramine HCl (Benadryl Po*) 50 mg PO Q6H PRN PRN Reason: AGITATION Last Admin: 07/16/19 13:12 Dose: 50 mg [place] Carbonate ([place] Carbonate Er Tab*) 450 mg PO QAM [facility] Last Admin: 08/21/19 08:57 Dose: 450 mg [place] Carbonate ([place] Carbonate Er Tab*) 900 mg PO BEDTIME [facility] Last Admin: 08/20/19 21:55 Dose: 900 mg Lurasidone HCl (Latuda) 40 mg PO 1700 [facility] Last Admin: 08/20/19 19:50 Dose: 40 mg Multivitamins (Theragran Tab*) 1 tab PO DAILY [facility] Last Admin: 08/21/19 08:57 Dose: 1 tab Nicotine Polacrilex (Nicotine Gum*) 2 mg PO Q2H PRN PRN Reason: CRAVING - Discharge Plan Discharge Plan: Outpatient Follow Up Outpatient Program: ACT team
[2019-08-21] MEDS: Lurasidone(*) 40 MG TAB PO SCH (17:50)
[2019-08-22] MEDS: Lithium Carbonate ER* 450 MG TAB.ER PO SCH (08:37)
[2019-08-22] MEDS: Vitamin THERAPEUTIC TAB PO SCH (08:38)
[2019-08-22 09:39] VITALS: BP 141/89
--- NOTE | 2019-08-22 20:53 | DS ---
PSYCHIATRIC DISCHARGE SUMMARY: DATE OF ADMISSION: 07/09/19 DATE OF DISCHARGE: 08/22/19 DISCHARGE DIAGNOSES: [place] I: Schizoaffective disorder, bipolar type; hallucinogen use disorder; cannabis use disorder. [place] II: Deferred. CONDITION AT THE TIME OF DISCHARGE: Improved. Jarrod has not demonstrated any violent behaviors during this hospitalization. His threats of violence have significantly subsided and he is denying homicidality or thoughts of hurting other people. He has steadfastly denied suicidal ideations throughout this hospitalization. Jarrod is tolerating his medications well and has been taking them consistently throughout the hospital stay. He has been visited by the assertive community treatment team on the date of discharge and is agreeable to continuing care with that organization upon discharge. Jarrod has been safe on all checks. We have advanced his privileges to every 30-minute checks as well as use of the computer and the ability to go outside with staff supervision. He has been going to groups consistently, being a good participant and making contributions to group topics. His level of irritability, hostility and paranoia are such that they can be well managed in a less restrictive setting. It should be noted that we had consideration for sending Jarrod to the [facility]; however, we feel that he can safely be treated in a less coercive fashion in the community and Jarrod is very much in agreement with this. MENTAL STATUS EXAM AT THE TIME OF DISCHARGE: Jarrod is a somewhat small stature white male with a thick mario and long hair which is slicked back and combed. He is wearing a blue shirt and herrera shorts. He is calm, cooperative, expressive , makes good eye contact and easy to establish a rapport with. His speech has a normal rate, tone, and volume. Mood appears to be euthymic with a full affect. Thought process is linear and goal directed. Thought content is significant for his desire to be discharged from the hospital. He is denying suicidal or homicidal ideations. He denies auditory or visual hallucinations. Insight and judgment appear to be markedly impaired given his willingness to continue medications and working with the ACT team after discharge. Cognitively , he is awake and alert with what would appear to be an average intellect. LABORATORY DATA: Comprehensive metabolic testing was performed on 07/15/19 revealing hemoglobin A1c of 5.7%, triglycerides 106, cholesterol 167, LDL cholesterol 93, HDL cholesterol 53.0. DISCHARGE INSTRUCTIONS: Discharge instructions to the patient are as follows: Part A: Medications: 1. He is taking lurasidone 40 mg p.o. q.1700 hours with food. 2. He is also taking lithium extended release 450 mg p.o. q.a.m. and 900 mg p.o. at bedtime. Part B: Diet is regular. Part C: Activities as tolerated. The patient is a smoker and he is declining the offer of nicotine replacement therapy, instead he is granted the [facility] Smokers' Quitline at [phone]. There are no laboratory or diagnostic studies pending at the time of discharge. Part D: Followup care: The patient will be followed by the assertive community treatment team, who will likely take him home after their therapeutic discharge planning meeting with him this afternoon. Part E: Substance abuse followup is nonapplicable. Part F: Disposition: The patient is returning to his home in the community. HOSPITAL COURSE: Part A: Reason for admission: The patient is a 29-year-old single white male with a history of schizoaffective disorder, who is currently under the treatment of the assertive community treatment team, who arrived at the emergency room on a 9.55 legal status initiated by this clinician. The circumstances of the patient's arrival and evaluation in our ED are somewhat unusual. The scenario began as this clinician was getting lunch in our hospital cafeteria. On that premises, I was approached by Mr. Mckenna who asked if I worked on the behavioral science service, which I affirmed. At that time, he started complaining about mental health services that he has received in the community, saying that the ACT team is not doing anything for him. He also goes on to state that the local police are incompetent and trying to harm him. Mr. Mckenna indicated that the food that he was getting in our food court, he intended to steal and after this he was going to go to the health records department where he would insist on having his records amended, so that Haldol was placed back on his list of allergies. The patient was asked about suicidal thoughts, which he denied; however, when asked about homicidality, he indicated that he had several weapons in his car which was currently parked in our parking lot. He further stated that he had a piece of metal pipe, a short handled axe and a long knife and he was not afraid to use these if he felt threatened. I asked if there were any particular targets for his violence thoughts and he indicated the police "killing a spectroscopist is not a crime under certain circumstances." At that point, I asked Mr. Mckenna to take a walk with me to our emergency room where I had him registered for a psychiatric evaluation. I was uncomfortable with the prospect of the patient leaving against medical advice and so I signed a 9.55 involuntary paperwork to hold him in the ED. There, he was agitated, paranoid and trying to elope, requiring stat medication by the emergency medical service. Later, he was compelled to get into paper scrubs. Several law enforcement officers arrived to take a statement due to the patient's homicidality towards them. They indicated that they know him well. Another incident that is of concern is that the patient was in our emergency room on 06/29/19 after he approached a police patrol officer who is doing a routine drug stop with a third republican. He began to berate that officer and was pepper sprayed and brought to the hospital, but later denied any suicidal or homicidal ideations and was discharged. For further collateral information, I reached out to the ACT team. They indicated that Mr. Mckenna has been on their service since July 2018 and that he is often provocative and paranoid. They were able to stabilize him somewhat on a low dose of Zyprexa over the fall, but he discontinued it indicating that he liked the edge of being manic. They were not certain where the patient has been residing, although he has a girlfriend in town with whom he will occasionally stay. Part B: Psychiatric treatment rendered: The patient was admitted to the adult behavioral health unit and placed on a 9.39 status. Thereafter, this was converted to a 2 PC. He did agree to a trial of lurasidone initially at 60 mg, but complained of sedation and the medication dose was reduced to 40 mg. He later was agreeable to initiation of lithium therapy initially at 150 mg twice daily and steadily titrated up to the therapeutic dose of 450 mg in the morning and 900 mg in the evening. Unfortunately, Jarrod continued to make homicidal threats towards not only the police, but also an associate of his by the name of Krish Madden. The hospital made attempts to find Mr. Madden' location, so that we could warn him; however, he was unidentifiable. Gradually, Jarrod improved with medications and with group treatments. He started attending milieu activities more sincerely and he stopped making spontaneous statements about hurting the police or killing others. He continued to deny suicidal ideations throughout his stay. At one point, he took the hospital to court for retention, the hearing of which was won by the hospital. We also took him to court for treatment over his objection and won that case, although since he was adherent with medications, it was not deemed necessary for his ongoing treatment. At this time, Jarrod appears to be back to his psychiatric baseline and we see no reason to send him to the [facility], although this had been considered. I think he would do well receiving community treatment with the ACT team and staying on his lithium and lurasidone therapies. Jarrod is certainly better. I understand that law enforcement liked to question him at this time regarding the weapons that were discovered in his car in our parking lot and we will be facilitating that meeting; otherwise, he is free for discharge. [id number]/[facility] #: [id number] TROY
== END 2019-08-22 14:30 | disposition home or self-care (01) | DRG 750 ==
LOC: ED 14:30 → BSU 14:45
PROVIDERS: ADMIT Psychiatry & Neurology Psychiatry; ATTEND Psychiatry & Neurology Psychiatry
PROC: GZHZZZZ Group Psychotherapy (ICD-10-PCS; principal; 2019-07-12)
DX: F25.0 Schizoaffective disorder, bipolar type (principal); J45.909 Unspecified asthma, uncomplicated; F41.9 Anxiety disorder, unspecified; F17.210 Nicotine dependence, cigarettes, uncomplicated; R45.850 Homicidal ideations; F12.90 Cannabis use, unspecified, uncomplicated; F16.90 Hallucinogen use, unspecified, uncomplicated; A60.01 Herpesviral infection of penis; Z59.0 Homelessness
CPT/HCPCS: 36415; 80053; 80061; 80178; 83036; 84443; 85025; 87529; 90853; 93005; 96130; 99231; 99232; 99233; 99238; 99284; A9270-GY; J1200; J1630; J2060

== ENCOUNTER 2021-10-04 21:43 | Inpatient (IN) ==
[~2021-10-04 21:43] MED LIST changes: +Haloperidol 5 mg/ml SDV IV/IM 5 MG/ML AMP ONE; -Nicotine PATCH 21 MG/24 HR* PATCH ONE; +diPHENhydraMINE IV 50 MG/ML 1 ml VIAL (BENADRYL) ONE
[2021-10-04 22:23] LABS: ABS Eosinophils 0.1 10^3/ul (0-0.6); ABS Lymphocytes 2.4 10^3/ul (1.0-4.8); ABS Monocytes 0.6 10^3/ul (0-0.8); ABS Neutrophils 4.4 10^3/ul (1.5-7.7); Eosinophil % 1.1 %; Hematocrit 44 % (42-52); Hemoglobin 15.1 g/dL (14.0-18.0); Mean Corpuscular HGB Conc 34 g/dL (31-36); Mean Corpuscular Hemoglobin 30 pg (27-31); Mean Corpuscular Volume 88 fL (80-94); Mean Platelet Volume 7.9 fL (7.4-10.4); Platelet Count 259 10^3/uL (150-450); Red Blood Count 5.04 10^6 /uL (4.18-5.48); Red Cell Distribution Width 15 % (10-15); White Blood Count 7.6 10^3/uL (3.5-10.8)
[2021-10-04 22:55] LABS: TSH Ultra Thyroid Stim Horm 2.52 mcIU/mL (0.34-5.60)
[2021-10-04 22:57] LABS: ALT 12 U/L (7-52); AST 15 U/L (13-39); Acetaminophen < 15 mcg/mL; Albumin 4.8 g/dL (3.2-5.2); Albumin/Globulin Ratio 1.8 (1-3); Alcohol, S < 13 mg/dL (<13); Alkaline Phosphatase 63 U/L (35-149); Anion Gap 8 mmol/L (2-11); Blood Urea Nitrogen 10 mg/dL (6-24); CO2 Carbon Dioxide 28 mmol/L (22-32); Calcium 9.8 mg/dL (8.6-10.3); Chloride 104 mmol/L (101-111); Globulin 2.6 g/dL (2-4); Glucose 92 mg/dL (70-100); Potassium 4.2 mmol/L (3.5-5.0); Salicylate < 2.50 mg/dL (<30); Sodium 140 mmol/L (135-145); Total Protein 7.4 g/dL (6.4-8.9); eGFR CKD-EPI 120.6 (>60)
[2021-10-05] MEDS ORDERED: LORazepam 2 mg VIAL 1 ml ONE (01:37)
[2021-10-05] MEDS ORDERED: Al Hydrox/Mg Hydrox/Simet LIQ 30 ML UDC PO PRN (10:24)
[2021-10-05] MEDS ORDERED: Albuterol HFA INHALER 8 gm MDI INH PRN (10:30)
[2021-10-06 07:57] LABS: HDL Cholesterol 58.3 mg/dL
[2021-10-08] MEDS ORDERED: Paliperidone SUSTENNA 234 MG/1.5 ML IM ONE (08:22)
[2021-10-11] MEDS ORDERED: Paliperidone SUSTENNA 156 MG/1 ML IM ONE (09:00)
[2021-10-11 09:16] VITALS: BP 138/81
== END 2021-10-11 10:38 | disposition home or self-care (01) | DRG 750 ==
LOC: ED 21:43 → EDHOLD 10-05 10:42 → BSU 10-05 15:50
PROVIDERS: ADMIT Student in an Organized Health Care Education/Training Program; ATTEND Student in an Organized Health Care Education/Training Program